=== PATIENT | female | born 1945 | race Caucasian/White ===

== ENCOUNTER 2017-12-06 19:30 | Outpatient (CLI) | payer MEDICARE | END 2017-12-06 19:31 | disposition home or self-care (01) | LOC: SLEEPLAB 19:30 | PROVIDERS: ATTEND Internal Medicine Critical Care Medicine | DX: G47.33 Obstructive sleep apnea (adult) (pediatric) (principal); I48.91 Unspecified atrial fibrillation; G47.52 REM sleep behavior disorder | CPT/HCPCS: 95811 ==

== ENCOUNTER 2018-03-22 15:14 | Outpatient (CLI) | payer MEDICARE ==
--- NOTE | 2018-03-22 15:54 | RAD ---
PA AND LATERAL CHEST: Indication: History of dyspnea. Comparison: 04-07-17 FINDINGS: COPD change is stable. Post CABG change is similar. Dual-lead pacemaker is unchanged. No new airspace opacity, pleural effusion, or pneumothorax is evident. Multilevel compression fractures of the thora columbar spine is similar appearing. Diffuse osteopenia is similar. Surgical clips are seen within th e upper abdomen, similar to the comparison exam. IMPRESSION: 1. No acute cardiopulmonary abnormality. 2. Chronic lung changes. 3. Stable thoracolumbar compression abnormality. POS: [facility]
== END 2018-03-22 15:15 | disposition home or self-care (01) ==
LOC: RAD 15:14
PROVIDERS: ATTEND Internal Medicine Critical Care Medicine
DX: R06.00 Dyspnea, unspecified (principal)
CPT/HCPCS: 71046

== ENCOUNTER 2018-08-12 08:46 | Outpatient (CLI) | payer MEDICARE ==
--- NOTE | 2018-08-12 11:57 | CT ---
CTA OF THE NECK WITH IV CONTRAST AND 3D REFORMATTED IMAGING: INDICATION: History of TIA with double vision. COMPARISON: None. FINDINGS: There is emphysema involving the lung apices with prominent bullae involving the superior segments of the lower lobes. There are other scattered areas of centrilobular and paraseptal emphysema. There enlargement of the pulmonary arterial tree likely related to a secondary pulmonary arterial hypertens ion. There are vascular calcifications involving the thoracic aorta. The right common carotid artery is patent. There is mild atherosclerotic irregularity involving the right carotid bulb. The right internal carotid artery is patent. The visualized petrous and precave rnous ICA are patent. There is a small focal out pouching involving the lateral aspect of the right cavernous internal carotid artery measuring 2.5 x 2.8 mm suspicious for a small aneurysm of the right ICA cavernous segment on image 197 of series 2 [address] series. The supraclinoid IC A is patent. The right MCA and right DIANA is patent. The left common carotid artery is tortuous. The left ICA demonstrates some mild vascular calcificati on along its proximal segment. The remaining cervical course is patent. The left petrous, left prec avernous, left supraclinoid, and left MCA and DIANA arteries are widely patent. Bilateral research engineer marine equipment are patent. The basilar artery is patent. The right vertebral artery is patent. The left vertebral artery is slightly diminutive but patent. Mild calcification near the origin of the left vertebral artery. Subclavian arteries appear patent bilaterally. There is scattered degenerative and osteoarthritic change. There is prominent opacification within t he maxillary sinuses bilaterally. The remaining visualized prevertebral soft tissues appear within n ormal limits. IMPRESSION: 1. No hemodynamically significant stenosis demonstrated. 2. 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 Neurointerventional consultation is recommended with Dr. César Pérez. 3. Complete opacification of maxillary sinus suspicious for prominent paranasal sinus disease. 4. Emphysema of the lung apices with prominence of the pulmonary arterial tree likely related to und erlying secondary pulmonary artery hypertension. CODE T POS: [facility]
[2018-08-12] MEDS ORDERED: Iopamidol 370 76% 100 ML VIAL ONE (13:56)
== END 2018-08-12 08:47 | disposition home or self-care (01) ==
LOC: CT 08:46
PROVIDERS: ATTEND Internal Medicine
DX: G45.9 Transient cerebral ischemic attack, unspecified (principal); I67.1 Cerebral aneurysm, nonruptured; J43.9 Emphysema, unspecified; J34.89 Other specified disorders of nose and nasal sinuses
CPT/HCPCS: 70498; 82565

== ENCOUNTER 2018-09-02 14:15 | Outpatient (CLI) | payer MEDICARE ==
--- NOTE | 2018-09-02 16:55 | BD ---
Exam: DEXA Bone Density 09/02/18 COMPARISON: None. HISTORY: Postmenopausal female undergoing screening for osteoporosis. Lumbar Spine: BMD (g/cm2) L1 0.885 T-Score: -1.0 L2 0.857 T-Score: -1.6 L3 1.021 T-Score: -0.6 L4 1.130 T-Score: 0.6 L1-L4 0.952 T-Score: -0.9 Femoral Neck: 0.533 T-Score: -2.8 Total Proximal Femur: 0.691 T-Score: -2.1 FRAX-WHO fracture risk assessment tool is not reported as some T-Scores are at or below -2.5. Impression: Osteoporosis of the femoral neck, correlating with a high associated risk for fracture. POS: [facility]
--- NOTE | 2018-09-02 17:03 | RAD ---
TWO VIEWS THORACIC SPINE: History: Collapsed vertebra. Pain. Comparison: 06-04-17 FINDINGS: Re-demonstration of multiple stable compression fractures. There is associated vertebral planta and k yphosis. There is diffuse bone demineralization. No new thoracic spine vertebral body fractures are a ppreciated. IMPRESSION: Stable multilevel compression fractures POS: [facility]
== END 2018-09-02 14:16 | disposition home or self-care (01) ==
LOC: BICMAMMO 14:15
PROVIDERS: ATTEND Internal Medicine Rheumatology
DX: M48.54XS Collapsed vertebra, not elsewhere classified, thoracic region, sequela of fracture (principal); M81.0 Age-related osteoporosis without current pathological fracture; M54.6 Pain in thoracic spine
CPT/HCPCS: 72070; 77080

== ENCOUNTER 2018-11-25 14:17 | Outpatient (CLI) | payer MEDICARE ==
--- NOTE | 2018-11-25 15:38 | RAD ---
PA AND LATERAL CHEST: Comparison: 03-22-18 History: Dyspnea arteritis. FINDINGS: Heart size is upper limits of normal. The pacemaker is present. There are post op sternotomy changes seen. There are chronic appearing lung changes present. No acute process demonstrated. IMPRESSION: Borderline heart size with chronic lung change. POS: [facility]
== END 2018-11-25 14:18 | disposition home or self-care (01) ==
LOC: BICRAD 14:17
PROVIDERS: ATTEND Internal Medicine Rheumatology
DX: I77.6 Arteritis, unspecified (principal)
CPT/HCPCS: 71046

== ENCOUNTER 2019-02-16 08:29 | Day surgery (SDC) | payer MEDICARE ==
--- NOTE | 2019-02-14 15:26 | HP ---
ADDENDUM: To previous dictation 09/30/2018. Yanci Slaughter is a 73-year-old female with a midline incision from abdominal aortic aneurysm repair. She is on Xarelto for atrial fibrillation. She is followed by Dr. Anthony Benitez. She is followed by Dr. Minh Parnell for chronic bronchitis and has chronic cough. She is on low-dose steroids for vasculitis. The patient has an incisional hernia in her upper midline incision, suprapubic midline incision, right inguinal hernia. Plan is for robotic mesh repair of these hernias as an outpatient. I have personally discussed with Dr. Anthony Benitez, who states that she is safe to proceed with above-mentioned surgery under general anesthesia without further cardiac evaluation. The patient will hold her Xarelto for 3 midnights prior to the surgery. She will resume it 2 midnights after the surgery. She understands the risks and benefits of the repair and consents. The patient is followed by Dr. Conn for chronic cough and has been recently evaluated. MEDICATIONS: 1. Carvedilol 6.25 mg a day. 2. Atorvastatin 40 mg a day. 3. Levothyroxine 100 mcg a day. 4. Digoxin 125 mcg a day. 5. Aspirin 81 mg a day. 6. Ibandronate sodium 150 mg p.o. daily. 7. Centrum Silver daily. 8. Ezetimibe 10 mg a day. 9. CoQ10 daily. 10. Xarelto 20 mg at bedtime. 11. Vitamin D3. 12. Prednisone 4 mg a day. 13. Duloxetine 30 mg a day. 14. Mucinex daily. 15. Tylenol p.r.n. PAST SURGICAL HISTORY: Colonoscopy in the past. Left heart catheterization in 2012. Pacemaker in October 2007. Coronary artery bypass in 2007. Abdominal aortic aneurysm repair and hernia repair on 12/02/2016. REVIEW OF SYSTEMS: Chronic anticoagulation. SOCIAL HISTORY: Tobacco, none. Alcohol, none. ALLERGIES: PENICILLIN. PHYSICAL EXAMINATION: VITAL SIGNS: Weight 133 pounds, 64 inches, 67 heart rate, blood pressure 119/71, temperature 99 degrees. HEAD, EYES, EARS, NOSE, AND THROAT: Unremarkable. LUNGS: Clear to auscultation. No wheezing. No rhonchi. CARDIAC: Rate and rhythm, irregularly irregular, controlled rate. ABDOMEN: Soft, flat, nondistended. Smaller defect, upper midline incision between the xiphoid and umbilicus. Another defect, lower midline incision and right inguinal hernia repair on standing. EXTREMITIES: Unremarkable. ASSESSMENT AND PLAN: 1. Chronic anticoagulation. Hold Xarelto 3 midnights prior to the surgery. 2. Chronic atrial fibrillation. 3. Discussed with Dr. Anthony Benitez and the patient is safe to proceed for below mentioned surgery without further cardiac evaluation. 4. Incisional hernias, multiple as described. Plan robotic mesh repair. Risks and benefits discussed. She consents. 5. 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 6. Allergies to penicillin. Job ID: [id number]
[2019-02-15 14:50] VITALS: BMI 25.9
[2019-02-16] MEDS ORDERED: Ketorolac Tromethamine 30 MG/ML VIAL ONE (09:06)
[2019-02-16] MEDS ORDERED: Levofloxacin 500 mg/D5W 100 ml Premix Bag ONE (09:06)
[2019-02-16] MEDS ORDERED: Fentanyl 100 MCG/2 ML VIAL ONE ×2 (09:25→16:50)
[2019-02-16] MEDS ORDERED: Midazolam HCl 2 mg/2 ml Vial ONE (09:25)
[2019-02-16 09:27] LABS: #Basophils 0.1 thou/uL (0.0-0.2); #Eosinphils 0.1 thou/uL (0.0-0.7); #Lymphocytes 1.6 thou/uL (1.20-3.40); #Monocytes 0.8 thou/uL (0.11-0.59); #Neutrophils 6.5 thou/uL (1.40-6.50); %Basophils 0.6 % (0.0-1.0); %Eosinophils 1.4 % (0.0-10.0); %Lymphocytes 17.3 % (21.0-51.0); %Monocytes 8.8 % (0.0-10.0); %Neutrophils 71.9 % (42.0-75.0); Hemoglobin 13.4 g/dL (12.0-16.0); Mean Corpuscular Hemoglobin 32.4 pg (27.0-31.0); Mean Corpuscular Volume 95.4 fL (78.0-98.0); Mean Platelet Volume 7.1 fL (7.4-10.4); Platelet Count 229 thou/uL (130-400); RBC Distribution Width 13.5 % (11.5-14.5); Red Blood Cell (RBC) Count 4.14 mill/uL (4.20-5.40)
[2019-02-16 09:45] LABS: Anion Gap 15 mmol/L (10-20); BUN (Urea Nitrogen) 17 mg/dL (9.8-20.1); Calc. Creatinine Clearance 48 mL/min (70-130); Calcium 10.2 mg/dL (7.8-10.44); Carbon Dioxide 26 mmol/L (23-31); Chloride 104 mmol/L (98-107); Estimated GFR-MDRD 56; Glucose 95 mg/dL (83-110); Potassium 3.7 mmol/L (3.5-5.1); Sodium 141 mmol/L (136-145)
[2019-02-16] MEDS ORDERED: Fentanyl 250 MCG/5 ML VIAL ONE (11:36)
[2019-02-16] MEDS ORDERED: Bupivacaine HCl 0.5%/Epinephrine 1:200,000/PF 30 ml Vial ONE (14:43)
[2019-02-16] MEDS ORDERED: Dexamethasone 20 MG/5 ML VIAL ONE (14:46)
[2019-02-16] MEDS ORDERED: Lidocaine 2% PF 5 ML VIAL ONE (14:46)
[2019-02-16] MEDS ORDERED: Rocuronium Bromide 10 MG/ML (10ML VIAL) ONE ×2 (14:46)
[2019-02-16] MEDS ORDERED: Glycopyrrolate 0.2 MG/ML 5 ML SYRINGE ONE (14:46)
[2019-02-16] MEDS ORDERED: Ondansetron PF 4 MG/2 ML Vial ONE (14:46)
[2019-02-16] MEDS ORDERED: PROPOFOL 200 MG/20 ML VIAL ONE (14:46)
[2019-02-16] MEDS ORDERED: SUGAMMADEX SODIUM 200 MG/2 ML VIAL ONE (16:04)
[2019-02-16] MEDS ORDERED: Promethazine HCl 25 MG/ML VIAL IM/IV PRN (17:34)
[2019-02-16] MEDS ORDERED: Ondansetron HCl/PF 4 MG/2 ML Vial IVP PRN (17:34)
--- NOTE | 2019-02-17 00:40 | OP ---
DATE OF PROCEDURE: 02/16/2019 DIAGNOSES: Right inguinal hernia, suprapubic incisional hernia, subxiphoid incisional hernia. PROCEDURES PERFORMED: Laparoscopic adhesiolysis; robot mesh repair, right inguinal hernia; robot mesh repair, suprapubic incisional hernia, 4.6 cm mesh; reinforcement of fascial closure; robot incisional hernia at the upper midline abdomen, 6 cm x 8 cm mesh repair using robots. ANESTHESIA: General, TAP block. ESTIMATED BLOOD LOSS: Less than 100 mL. DESCRIPTION OF PROCEDURE: The patient was taken to the operating room, where under general anesthesia and TAP block, Cavazos catheter placed at the beginning of the procedure and removed at the end. Abdomen was prepared with ChloraPrep and draped in routine fashion. Incision made left subcostally and pneumoperitoneum to 15 mmHg obtained with a Veress needle, replaced with a 5 port, laparoscope inserted. There were minimal adhesions in the upper abdomen. Robot ports were then placed under laparoscopic visualization, placing in the left lateral supraumbilical level abdomen incision and 5 port placed and right lateral 8 mm port placed, and infraumbilical incision was made and 11 port balloon port placed. The robot was docked and robot incisional hernia repair undertaken. Peritoneal flaps taken down from the right pelvis, from the anterosuperior iliac spine to the midline, dissecting this down, dissecting the hernia sac from the hernia defect where she had a right inguinal hernia. This peritoneum was taken down and skeletonized the retroperitoneal structures. A medium size mesh right side was then placed, laparoscopically oriented, placed across the pelvic floor covering the hernia defect well. It was sutured in place with a 2-0 Vicryl to the Esequiel ligament and to the anterior abdominal wall just to the patient's right of the inferior epigastric vessels. Once this was properly placed, the peritoneum was closed with continuous suture of #2-0 V-Loc. Attention was then turned to the suprapubic incision. The peritoneum taken down. Rectus muscles were identified in the midline and there was a hernia defect suprapubic. Using 0 V-Loc suture, this fascia was approximated in the midline with to-and-fro sutures running. A 4.6 cm circular mesh was then placed reinforcing this closure, placing the mesh and held in place with continuous suture of 2-0 V-Loc. Peritoneal defect closed with continuous suture of #2-0 Vicryl. Attention was then turned to the upper abdomen, where the robot was re-docked and repositioned. Initially, we started to use the 11 mm port paraumbilical, but had to place this lower for exposure reasons and to the right lower quadrant paramedian incision, another 11 port placed, and the robot was re-docked to accomplish this. The falciform ligament and omental adhesions were taken down using the hot cautery in the robot. The fascial defect measured approximately 3.5 cm. Peritoneum taken down. Fascia closed transversely with continuous to-and-fro sutures of 0 V-Loc. Once this was completed, the 6 x 8 cm mesh was trimmed, Ventralight, and placed against the abdominal wall. It was held in place with the previously used needle and mesh, secured with continuous suture of #2-0 V-Loc after reducing the pneumoperitoneum to 10 mmHg. Once this was accomplished, all needles were removed. Sponge, needle, and instrument counts were correct. All instruments removed and all skin incisions were approximated with subdermal 4-0 Monocryl and [place] glue applied. Job ID: [id number]
--- NOTE | 2019-02-19 13:30 | EKG ---
Test Reason : PREOP Blood Pressure : / mmHG Vent. Rate : 066 BPM Atrial Rate : 063 BPM P-R Int : 000 ms QRS Dur : 152 ms QT Int : 440 ms P-R-T Axes : 000 -76 096 degrees QTc Int : 461 ms Electronic ventricular pacemaker Confirmed by DR. Jensen TROY ([id number]) on 02/19/2019 1:29:48 PM Referred By: ALVAREZ Confirmed By:DR. Jensen TROY
== END 2019-02-16 21:19 | disposition home or self-care (01) ==
LOC: SDC 08:29
PROVIDERS: ATTEND Specialist
PROC: 0YU54JZ Supplement Right Inguinal Region with Synthetic Substitute, Percutaneous Endoscopic Approach (ICD-10-PCS; principal; 2019-02-16)
PROC: 0WUF4JZ Supplement Abdominal Wall with Synthetic Substitute, Percutaneous Endoscopic Approach (ICD-10-PCS; 2019-02-16)
DX: K40.90 Unilateral inguinal hernia, without obstruction or gangrene, not specified as recurrent (principal); K43.2 Incisional hernia without obstruction or gangrene; I10 Essential (primary) hypertension; J45.909 Unspecified asthma, uncomplicated; E03.9 Hypothyroidism, unspecified; E78.00 Pure hypercholesterolemia, unspecified; E78.5 Hyperlipidemia, unspecified; F41.9 Anxiety disorder, unspecified; M81.0 Age-related osteoporosis without current pathological fracture; Z88.0 Allergy status to penicillin; Z79.82 Long term (current) use of aspirin; Z79.899 Other long term (current) drug therapy; Z95.1 Presence of aortocoronary bypass graft; Z95.0 Presence of cardiac pacemaker
CPT/HCPCS: 80048; 85025; 93005; 93010; C1781; J0131; J0670; J1100; J1885; J1956; J2001; J2250; J2405; J2704; J3010

== ENCOUNTER 2019-04-12 09:57 | Outpatient (CLI) | payer MEDICARE ==
--- NOTE | 2019-04-12 11:10 | CT ---
CT ANGIOGRAM HEAD: CT ANGIOGRAM NECK: 04/12/2019 HISTORY: Prior history of TIA. Re-evaluate aneurysm noted on prior examination. COMPARISON: 08/12/2018 TECHNIQUE: Axial CT imaging is obtained at 5 mm intervals from the vertex through the skull base without contras t. Subsequently, axial CT imaging obtained at 1.25 mm intervals from lung apices through vertex with IV contrast using CT angiogram protocol. Coronal and sagittal 3D reformatted imaging obtained. FINDINGS: The noncontrast enhanced head CT demonstrates no intracranial hemorrhage, midline shift, or mass effe ct. There is stable complete opacification of the bilateral maxillary sinuses. The imaged lung apices demonstrate scattered increased linear interstitial density, as well as subple ural and centrilobular emphysematous change, right greater than left. There are midline sternotomy wires and mediastinal clips. There is atherosclerotic calcification of the aortic arch. Timing of the contrast bolus and volume of administrated contrast media leads to suboptimal opacifica tion of the arterial structures. robotics technologist notes do state that the patient's IV leaked during injection, and the patient was only administered 70 cc of contrast media secondary to abnormal GFR. The origin of the innominate artery, left common carotid artery, and left subclavian artery is patent . There is prominent tortuosity involving the proximal left common carotid artery and proximal left subclavian artery. There is atherosclerotic calcification at the origin of the right subclavian artery, not well assessed secondary to streak artifact from venous contrast media. The origin of the right common carotid artery appears grossly unremarkable. There is atherosclerotic calcification involving the distal left CCA and proximal left ICA. On the b asis of NASCET criteria, there is no hemodynamically significant stenosis involving the carotid system on the left. There is atherosclerotic calcification involving the distal right CCA, best seen on axial image 66, w ith probable moderate stenosis, difficult to accurately measure secondary to suboptimal opacification and atherosclerotic calcification. There is probable moderate stenosis, in the 50% range, at the origin of the right internal carotid ar radha, on the basis of calcified atherosclerotic plaque. Bilateral internal carotid arteries are patent. Vertebral arteries appear grossly unremarkable but are not optimally assessed on this exam. The basilar artery and its branches appear patent. No evidence for saccular aneurysm or vascular occ lusion is seen involving the posterior circulation. The prior examination demonstrated a possible tiny aneurysm involving the cavernous segment of the ri ght internal carotid artery. This is vaguely visualized on this examination and probably measures in the 3 mm range, suggesting no significant interval change. There is atherosclerotic calcification of the cavernous carotid arteries bilaterally. The M1 segment and MCA bifurcation appears grossly unremarkable. The A1 segment appears patent bilat erally. The distal DIANA branches appear grossly unremarkable. The retroantral fat and parapharyngeal fat appears clear bilaterally. The parotid glands and the subm andibular glands demonstrate no acute findings. No lymphadenopathy noted in the chest. No discrete aerodigestive tract lesion. There is moderate degenerative change at the atlantoaxial interspace. There is a superior endplate f racture at the T2, T3, and T5 levels, as seen on the 08/12/2018 examination. IMPRESSION: Grossly unchanged CT examination of the head and neck, using a CT angiogram protocol. This study is t echnically limited as detailed above. Transcribed Date/Time: 04/12/2019 12:11 PM
[2019-04-12] MEDS ORDERED: Iopamidol 370 76% 100 ML VIAL ONE (13:53)
== END 2019-04-12 09:58 | disposition home or self-care (01) ==
LOC: TBSIIMAG 09:57
PROVIDERS: ATTEND Neurological Surgery
DX: I72.9 Aneurysm of unspecified site (principal)
CPT/HCPCS: 70496; 70498; 82565; Q9967

== ENCOUNTER 2019-07-16 20:08 | Emergency (ER) | payer MEDICARE ==
[~2019-07-16 20:08] MED LIST: ISOVUE-370 76%-LOCM 1 ML ONE
--- NOTE | 2019-07-16 22:50 | RAD ---
EXAM: Chest 2 views: HISTORY: Right chest pain COMPARISON: 11/25/2018 FINDINGS: There is an enlarged but stable cardiomediastinal silhouette. The patient is status post CABG. The p acemaker is unchanged in position. Increased interstitial lung markings are stable. There is no evidence of consolidation, mass, or pleural effusion. The bones are unremarkable. IMPRESSION: No evidence of acute cardiopulmonary disease
[2019-07-16 23:07] LABS: #Basophils 0.1 thou/uL (0.0-0.2); #Eosinphils 0.3 thou/uL (0.0-0.7); #Lymphocytes 2.2 thou/uL (1.20-3.40); #Monocytes 0.6 thou/uL (0.11-0.59); #Neutrophils 4.2 thou/uL (1.40-6.50); %Basophils 0.9 % (0.0-1.0); %Eosinophils 3.4 % (0.0-10.0); %Lymphocytes 29.9 % (21.0-51.0); %Monocytes 8.6 % (0.0-10.0); %Neutrophils 57.2 % (42.0-75.0); Hemoglobin 13.8 g/dL (12.0-16.0); Mean Corpuscular HGB CONC 34.7 g/dL (32.0-36.0); Mean Corpuscular Hemoglobin 32.7 pg (27.0-31.0); Mean Corpuscular Volume 94.2 fL (78.0-98.0); Platelet Count 215 thou/uL (130-400); RBC Distribution Width 12.7 % (11.5-14.5); Red Blood Cell (RBC) Count 4.22 mill/uL (4.20-5.40); White Blood Cell (WBC) Count 7.4 thou/uL (4.8-10.8)
[2019-07-16 23:30] LABS: Albumin 4.6 g/dL (3.4-4.8)
[2019-07-16 23:31] LABS: Calcium 9.9 mg/dL (7.8-10.44); Chloride 106 mmol/L (98-107); Potassium 4.5 mmol/L (3.5-5.1); Sodium 139 mmol/L (136-145)
[2019-07-16 23:32] LABS: Globulin 2.7 g/dL (2.4-3.5); Glucose 100 mg/dL (83-110); Protein, Total 7.3 g/dL (6.0-8.3)
[2019-07-16 23:33] LABS: Carbon Dioxide 23 mmol/L (23-31)
[2019-07-16 23:34] LABS: Bilirubin, Total 0.9 mg/dL (0.2-1.2)
[2019-07-16 23:35] LABS: Alkaline Phosphatase 91 U/L (40-110); Calc. Creatinine Clearance 0 mL/min (70-130); Estimated GFR-MDRD 60
[2019-07-16 23:36] LABS: BUN (Urea Nitrogen) 15 mg/dL (9.8-20.1)
[2019-07-16 23:37] LABS: AST (SGOT) 15 U/L (5-34)
[2019-07-16 23:38] LABS: ALT (SGPT) 8 U/L (8-55)
[2019-07-16 23:51] LABS: Anion Gap 14 mmol/L (10-20)
--- NOTE | 2019-07-17 09:57 | CT ---
PRELIMINARY REPORT/[facility]/EMERGENCY AFTER HOURS PROCEDURE: PROCEDURE INFORMATION: Exam: CT Angiography Chest With Contrast Exam date and time: 07/17/2019 1:07 AM Clinical history: 73 years old, female; Patient HX: Er 23; F73 reports to ED C/O right-sided chest pa in, x2 days. PT reports associated SUN. Pmhx afib, pe, pacemaker. Elevated d-dimer TECHNIQUE: Imaging protocol: Computed tomographic angiography of the chest with intravenous contrast. 3D renderi ng: MIP reconstructed images were created and reviewed. COMPARISON: No relevant prior studies available. FINDINGS: Tubes, catheters and devices: Left approach dual lead pacemaker with leads in the right atrium and ri ght ventricle. Pulmonary arteries: No pulmonary emboli. Aorta: Atherosclerotic changes and ectasia of the thoracic aorta. Lungs: Centrilobular and paraseptal emphysema with a larger bulous changes in the superior segments o f the bilateral lower lobes. Mild septal thickening. No pulmonary consolidations. Pleural space: No pneumothorax or pleural effusion. Heart: Mild cardiac enlargement. Surgical changes of coronary artery bypass. The right coronary arter y bypass graft measures up to 1 cm in diameter and contains a distal stent. Scattered coronary artery calcifications. Liver: Liver cysts. Gallbladder and bile ducts: Partially visualized tiny layering gallstones. Lymph nodes: Enlarged aortic pulmonary window lymph node versus dilated and tortuous vessel. Bones/joints: Median sternotomy wires. Mild cortical irregularity to the right anterior fifth rib, li zoe from an old fracture. Multiple thoracic spine compression fractures including T5, 8, 9, 10, 11, 12 and L1. Soft tissues: No acute finding. IMPRESSION: 1. No evidence of a pulmonary embolism. 2. Emphysematous changes without consolidation. Thank you for allowing us to participate in the care of your patient. Dictated and Authenticated by: Starr Kamara MD 07/17/2019 1:49 AM Central Time ([place] & [place]) FINAL REPORT CTA CHEST WITH CONTRAST: Multiplanar reconstruction and 3d post processing performed. FINDINGS: No evidence of pulmonary embolus. Chronic lung parenchymal changes. I am in agreement with the preliminary report.
== END 2019-07-17 02:12 | disposition home or self-care (01) ==
LOC: ERS 20:08
DX: R07.89 Other chest pain (principal); E03.9 Hypothyroidism, unspecified; E78.5 Hyperlipidemia, unspecified; F41.9 Anxiety disorder, unspecified; F32.9 Major depressive disorder, single episode, unspecified; I10 Essential (primary) hypertension; J43.9 Emphysema, unspecified; I25.2 Old myocardial infarction; Z87.891 Personal history of nicotine dependence; Z79.899 Other long term (current) drug therapy
CPT/HCPCS: 36415; 71046; 71275; 80053; 84484; 85025; 85379; 93005

== ENCOUNTER 2019-10-13 13:44 | Outpatient (CLI) | payer MEDICARE ==
--- NOTE | 2019-10-13 14:33 | RAD ---
EXAM: Chest 2 views: HISTORY: Dyspnea COMPARISON: 07/16/2019 FINDINGS: There is an enlarged but stable cardiomediastinal silhouette. The patient is status post CABG. The p acemaker is unchanged in position. There is no evidence of consolidation, mass, or pleural effusion. The bones are unremarkable. IMPRESSION: No evidence of acute cardiopulmonary disease
--- NOTE | 2019-10-13 14:36 | RAD ---
EXAM: 3 views of the thoracic spine HISTORY: Thoracic spine pain COMPARISON: 09/02/2018 FINDINGS: 3 views of the thoracic spine shows stable persistent wedging of multiple thoracic vertebra l bodies, unchanged. Moderate osteophytes are seen throughout the thoracic spine. IMPRESSION: Degenerative changes with multiple stable compression fractures
--- NOTE | 2019-10-13 15:37 | BD ---
Exam: DEXA Bone Density 10/13/19 HISTORY: Age-related osteoporosis, MA1.0. COMPARISON: None. FINDINGS: Lumbar Spine: BMD (g/cm2) T-SCORE Z-SCORE L1 1.071 0.7 2.9 L2 0.911 -1.9 1.4 L3 1.112 0.3 2.8 L4 1.174 1.0 3.7 L1-L4 1.052 0.0 2.5 Right Femoral Neck: 0.628 -1.9 0.2 Total Right Femur: 0.774 -1.4 0.5 WHO classification: Osteopenia: Ten year fracture risk: Major osteoporotic fracture: 20% Hip fracture: 4.5%. Impression: Osteopenia with fracture risk as above. POS: [facility]
== END 2019-10-13 13:45 | disposition home or self-care (01) ==
LOC: BICRAD 13:44
PROVIDERS: ATTEND Internal Medicine Rheumatology
DX: M81.0 Age-related osteoporosis without current pathological fracture (principal); I28.8 Other diseases of pulmonary vessels; M47.814 Spondylosis without myelopathy or radiculopathy, thoracic region; M48.54XA Collapsed vertebra, not elsewhere classified, thoracic region, initial encounter for fracture; M85.80 Other specified disorders of bone density and structure, unspecified site
CPT/HCPCS: 71046; 72070; 77080

== ENCOUNTER 2020-04-06 05:08 | Outpatient (CLI) | payer MEDICARE, OTHER ==
[2020-04-06 13:56] LABS: #Basophils 0.1 thou/uL (0.0-0.2); #Eosinphils 0.3 thou/uL (0.0-0.7); #Lymphocytes 1.7 thou/uL (1.20-3.40); #Monocytes 0.7 thou/uL (0.11-0.59); #Neutrophils 2.8 thou/uL (1.40-6.50); %Basophils 1.2 % (0.0-1.0); %Eosinophils 4.6 % (0.0-10.0); %Lymphocytes 31.2 % (21.0-51.0); %Monocytes 11.9 % (0.0-10.0); %Neutrophils 51.1 % (42.0-75.0); Hemoglobin 9.6 g/dL (12.0-16.0); Mean Corpuscular HGB CONC 33.8 g/dL (32.0-36.0); Mean Corpuscular Hemoglobin 27.5 pg (27.0-31.0); Mean Corpuscular Volume 81.4 fL (78.0-98.0); Mean Platelet Volume 7.7 fL (7.4-10.4); Platelet Count 271 thou/uL (130-400); RBC Distribution Width 14.7 % (11.5-14.5); Red Blood Cell (RBC) Count 3.49 mill/uL (4.20-5.40); White Blood Cell (WBC) Count 5.6 thou/uL (4.8-10.8)
[2020-04-06 14:08] LABS: ALT (SGPT) 9 U/L (8-55); AST (SGOT) 16 U/L (5-34); Albumin 4.1 g/dL (3.4-4.8); Alkaline Phosphatase 80 U/L (40-110); Anion Gap 13 mmol/L (10-20); BUN (Urea Nitrogen) 17 mg/dL (9.8-20.1); Bilirubin, Total 0.7 mg/dL (0.2-1.2); Calc. Creatinine Clearance 0 mL/min (70-130); Calcium 9.2 mg/dL (7.8-10.44); Carbon Dioxide 24 mmol/L (23-31); Chloride 106 mmol/L (98-107); Estimated GFR-MDRD 56; Globulin 2.7 g/dL (2.4-3.5); Glucose 97 mg/dL (83-110); Potassium 3.7 mmol/L (3.5-5.1); Protein, Total 6.8 g/dL (6.0-8.3); Sodium 139 mmol/L (136-145)
[2020-04-07 12:33] LABS: SARS-CoV-2 MS2 Positive; SARS-CoV-2 N Gene Negative; SARS-CoV-2 S Gene Negative; SARS-CoV-2 orf1ab Negative
== END 2020-04-06 05:09 | disposition home or self-care (01) ==
LOC: LABBT 05:08
PROVIDERS: ATTEND Internal Medicine Cardiovascular Disease
DX: Z01.812 Encounter for preprocedural laboratory examination (principal); Z11.59 Encounter for screening for other viral diseases
CPT/HCPCS: 80053; 85025; U0003; 87635

== ENCOUNTER → 2020-04-10 | Day surgery (SDC) | payer MEDICARE ==
[2020-04-05 14:19] VITALS: BMI 25.2
[~2020-04-10] MED LIST changes: +Diazepam 5 MG TAB ONE; +Fentanyl 100 MCG/2 ML VIAL ONE; +Heparin 10,000 UNITS/1 ML VIAL ONE; -ISOVUE-370 76%-LOCM 1 ML ONE; +Iopamidol 370 76% 100 ML VIAL ONE; +Midazolam HCl 2 mg/2 ml Vial ONE
== END ==
LOC: CCL 06:25
PROVIDERS: ATTEND Internal Medicine Cardiovascular Disease
PROC: 4A023N7 Measurement of Cardiac Sampling and Pressure, Left Heart, Percutaneous Approach (ICD-10-PCS; principal; 2020-04-10)
PROC: B2111ZZ Fluoroscopy of Multiple Coronary Arteries using Low Osmolar Contrast (ICD-10-PCS; 2020-04-10)
PROC: B2181ZZ Fluoroscopy of Left Internal Mammary Bypass Graft using Low Osmolar Contrast (ICD-10-PCS; 2020-04-10)
PROC: B2131ZZ Fluoroscopy of Multiple Coronary Artery Bypass Grafts using Low Osmolar Contrast (ICD-10-PCS; 2020-04-10)
DX: I25.709 Atherosclerosis of coronary artery bypass graft(s), unspecified, with unspecified angina pectoris (principal); I25.119 Atherosclerotic heart disease of native coronary artery with unspecified angina pectoris; I25.82 Chronic total occlusion of coronary artery; I11.0 Hypertensive heart disease with heart failure; E78.2 Mixed hyperlipidemia; I50.9 Heart failure, unspecified; I48.0 Paroxysmal atrial fibrillation; E78.00 Pure hypercholesterolemia, unspecified; Z79.01 Long term (current) use of anticoagulants; Z79.82 Long term (current) use of aspirin; Z79.899 Other long term (current) drug therapy; Z88.0 Allergy status to penicillin; Z95.1 Presence of aortocoronary bypass graft
CPT/HCPCS: 76942; 93459; 99152; 99153; J1644; J2250; J3010; Q9967

== ENCOUNTER 2020-05-24 12:50 | Outpatient (CLI) | payer MEDICARE ==
--- NOTE | 2020-05-24 14:04 | CT ---
CT thoracic spine noncontrast: 05/24/2020 HISTORY: 74-year-old female with mid back pain. "Compression fracture T5 vertebra." COMPARISON: CT pulmonary angiogram images of 07/17/2019. FINDINGS: Multiple old compression fractures, including: T5 vertebral body with maximum of approximately 75% loss of height, minimal bony retropulsion of supe rior endplate. T8 with maximum of 75% or greater loss of height centrally. Minimal bony retropulsion. T9: Broad, shallow to moderate indentation of inferior endplate. Maximum loss of height approximately 30%. T10: Biconcave broad indentations of superior and inferior endplates, maximum loss of height approxim ately 50%. T11: Broad-based depression of superior endplate. Maximum anterior loss of height approximate 75%. L1: Severe loss of height with almost vertebra plana configuration. Mild bony retropulsion. Diffuse osteopenia. All of these old compression and burst fractures result in exaggerated kyphosis. Large posterior pleural-based bilateral lower lobe bullae, centered at superior segments of bilateral lower lobes, encroaching upon basilar segments. Numerous much smaller posterior pleural-based basilar segment lower lobe bullae. No significant interval change overall. IMPRESSION: 1.) Numerous old osteoporotic compression fractures and burst fractures of mid and lower thoracic spi ne, causing exaggerated kyphosis. 2) severe paraseptal emphysema 3) no interval change since 07/17/2019.
--- NOTE | 2020-05-24 14:11 | CT ---
Exam: CT lumbar spine without contrast HISTORY: Compression fracture of the lumbar spine. COMPARISON: None FINDINGS: Visualized solid organs, alimentary canal and paraspinal muscles do not demonstrate any acute abnorma lity Atherosclerosis of a nonaneurysmal aorta, Diffuse bone demineralization. Visualized sacrum and bony pelvis appear to be intact. Vacuum joint phenomenon in bilateral sacroilia c joints 5 lumbar type vertebra. Vertebral plana at L1. Sclerosis along the superior endplate of L3 without de finite paraspinal hematoma. Remote mild superior endplate compression fracture is suspected. There is sclerosis along the superior endplate of L4 and superior plate of L5 compatible with remote mild t o moderate compression fractures. No significant retropulsion. There is multilevel facet arthropathy. Limited evaluation the contents of the central spinal canal and neural foramina due to technique T12-L1: Vacuum disc phenomenon. No posterior disc abnormality. Moderate bilateral neural foraminal na rrowing L1 vertebral body: Moderate central canal stenosis secondary to retropulsion L1-L2: No evidence of high-grade central canal stenosis. Moderate to severe bilateral neural foramina l narrowing L2-L3: No evidence of high-grade central canal stenosis. Mild bilateral neural foraminal narrowing L3-L4: Broad-based disc bulge, ligament flavum thickening and facet hypertrophy results in mild to mo derate central canal stenosis. Mild to moderate bilateral neural foraminal narrowing L4-L5: Broad-based disc bulge, ligament flavum thickening and facet result in moderate central canal stenosis. Mild to moderate bilateral neural foraminal narrowing L5-S1: Broad-based disc bulge, ligamentum flavum thickening and facet hypertrophy. Moderate to severe central canal stenosis. Partial obscuration of bilateral traversing S1 nerve roots. Moderate to severe bilateral neural foraminal narrowing. IMPRESSION: 1. Diffuse bony mineralization 2. L1 vertebral plana with retropulsion. Moderate central canal stenosis 2. Remote mild superior end plate irregularity due to remote injury at the L3 level. Mild remote comp ression fractures at L4 and L5. 4. Varying degrees of central canal stenosis and neural foraminal narrowing as detailed above. Transcribed Date/Time: 05/24/2020 2:31 PM
== END 2020-05-24 12:51 | disposition home or self-care (01) ==
LOC: BICCT 12:50
PROVIDERS: ATTEND Neurological Surgery
DX: S22.050A Wedge compression fracture of T5-T6 vertebra, initial encounter for closed fracture (principal); S32.000A Wedge compression fracture of unspecified lumbar vertebra, initial encounter for closed fracture; M48.061 Spinal stenosis, lumbar region without neurogenic claudication; Z98.890 Other specified postprocedural states; J43.9 Emphysema, unspecified
CPT/HCPCS: 72128; 72131

== ENCOUNTER 2020-12-03 12:42 | Outpatient (CLI) | payer MEDICARE | END 2020-12-03 12:43 | disposition home or self-care (01) | LOC: BICMAMMO 12:42 | PROVIDERS: ATTEND Internal Medicine Rheumatology | DX: M81.0 Age-related osteoporosis without current pathological fracture (principal); M85.852 Other specified disorders of bone density and structure, left thigh | CPT/HCPCS: 77080 ==

== ENCOUNTER 2021-07-25 12:27 | Outpatient (CLI) | payer MEDICARE ==
[~2021-07-25 12:27] MED LIST changes: -Diazepam 5 MG TAB ONE; -Fentanyl 100 MCG/2 ML VIAL ONE; -Heparin 10,000 UNITS/1 ML VIAL ONE; -Iopamidol 370 76% 100 ML VIAL ONE; +Iopamidol-370 76% 500 ML 1 ML ONE; -Midazolam HCl 2 mg/2 ml Vial ONE
== END 2021-07-25 12:28 | disposition home or self-care (01) ==
LOC: BICCT 12:27
PROVIDERS: ATTEND Neurological Surgery
DX: I67.1 Cerebral aneurysm, nonruptured (principal); M81.0 Age-related osteoporosis without current pathological fracture
CPT/HCPCS: 36415; 70496; 82310; Q9967

== ENCOUNTER 2022-01-21 00:19 | Emergency (ER) | payer MEDICARE ==
[2022-01-21] MEDS ORDERED: GASTROGRAFIN 30 ML BOT ONE (10:16)
== END 2022-01-21 02:03 | disposition home or self-care (01) ==
LOC: ERS 00:19
DX: K94.23 Gastrostomy malfunction (principal); I11.0 Hypertensive heart disease with heart failure; I50.9 Heart failure, unspecified; I25.2 Old myocardial infarction; E03.9 Hypothyroidism, unspecified; E78.5 Hyperlipidemia, unspecified; J43.9 Emphysema, unspecified; Z86.73 Personal history of transient ischemic attack (TIA), and cerebral infarction without residual deficits; Z87.891 Personal history of nicotine dependence
CPT/HCPCS: 74018

== ENCOUNTER 2022-01-21 02:31 | Emergency (ER) | payer MEDICARE ==
[2022-01-21 03:49] LABS: #Basophils 0.1 thou/uL (0.0-0.2); #Eosinphils 0.1 thou/uL (0.0-0.7); #Lymphocytes 2.2 thou/uL (1.20-3.40); #Monocytes 0.9 thou/uL (0.11-0.59); #Neutrophils 7.9 thou/uL (1.40-6.50); %Basophils 0.7 % (0.0-1.0); %Eosinophils 1.2 % (0.0-10.0); %Lymphocytes 19.2 % (21.0-51.0); %Monocytes 8.4 % (0.0-10.0); %Neutrophils 70.6 % (42.0-75.0); Mean Corpuscular Hemoglobin 33.3 pg (27.0-31.0); Mean Corpuscular Volume 95.2 fL (78.0-98.0); Mean Platelet Volume 6.9 fL (7.4-10.4); Platelet Count 309 thou/uL (130-400); RBC Distribution Width 14.5 % (11.5-14.5); White Blood Cell (WBC) Count 11.2 thou/uL (4.8-10.8)
[2022-01-21 04:09] LABS: ALT (SGPT) 8 U/L (8-55); AST (SGOT) 15 U/L (5-34); Albumin 3.9 g/dL (3.4-4.8); Alkaline Phosphatase 90 U/L (40-110); Anion Gap 17 mmol/L (10-20); BUN (Urea Nitrogen) 22 mg/dL (9.8-20.1); Bilirubin, Total 0.8 mg/dL (0.2-1.2); Calc. Creatinine Clearance 0 mL/min (70-130); Calcium 9.5 mg/dL (7.8-10.44); Carbon Dioxide 24 mmol/L (23-31); Chloride 101 mmol/L (98-107); Globulin 3.8 g/dL (2.4-3.5); Glucose 108 mg/dL (83-110); Potassium 4.3 mmol/L (3.5-5.1); Protein, Total 7.7 g/dL (5.8-8.1); Sodium 138 mmol/L (136-145)
[2022-01-21 04:29] LABS: Bilirubin Negative (Negative); Blood, Urine Negative (Negative); Clarity Clear (Clear); Glucose, Urine (Dipstick) Normal (Negative); Ketone, Urine Negative (Negative); Leukocyte Negative Leu/uL (Negative); Nitrite Negative (Negative); Protein, Urine (Dipstick) 10 mg/dL (Neg-Trace); Urobilinogen 3 mg/dL (Less than 2); pH, Urine 6.5 (5.0-9.0)
[2022-01-21] MEDS ORDERED: Iopamidol-370 76% 500 ML 1 ML ONE (09:42)
== END 2022-01-21 06:52 | disposition home or self-care (01) ==
LOC: ERS 02:31
DX: R11.2 Nausea with vomiting, unspecified (principal); I11.0 Hypertensive heart disease with heart failure; I50.9 Heart failure, unspecified; I25.2 Old myocardial infarction; E03.9 Hypothyroidism, unspecified; E78.5 Hyperlipidemia, unspecified; J43.9 Emphysema, unspecified; Z86.73 Personal history of transient ischemic attack (TIA), and cerebral infarction without residual deficits; Z87.891 Personal history of nicotine dependence
CPT/HCPCS: 36415; 74018; 74177; 80053; 81003; 84484; 85025; 93005; Q9967

== ENCOUNTER 2022-01-30 09:42 | Inpatient (IN) | payer MEDICARE ==
[2022-01-30 11:20] LABS: Bacteria/HPF None Seen HPF (None Seen); Bilirubin Negative (Negative); Blood, Urine Negative (Negative); Clarity Clear (Clear); Glucose, Urine (Dipstick) Normal (Negative); Ketone, Urine Negative (Negative); Leukocyte 25 Leu/uL (Negative); Nitrite Negative (Negative); Protein, Urine (Dipstick) 50 mg/dL (Neg-Trace); RBC/HPF 0-3 HPF (0-3); Specific Gravity, Urine 1.023 (1.002-1.036); Squamous Epithelial 0-3 HPF (0-3); Urobilinogen Normal mg/dL (Less than 2); WBC/HPF 0-3 HPF (0-3)
[2022-01-30] MEDS ORDERED: Ondansetron PF 4 MG/2 ML Vial ONE (11:35)
[2022-01-30 11:49] LABS: #Eosinphils 0.1 thou/uL (0.0-0.7); #Lymphocytes 2.1 thou/uL (1.20-3.40); #Monocytes 0.7 thou/uL (0.11-0.59); #Neutrophils 7.8 thou/uL (1.40-6.50); %Basophils 0.3 % (0.0-1.0); %Eosinophils 0.8 % (0.0-10.0); %Monocytes 6.5 % (0.0-10.0); %Neutrophils 72.5 % (42.0-75.0); Hemoglobin 12.5 g/dL (12.0-16.0); Mean Corpuscular HGB CONC 33.5 g/dL (32.0-36.0); Mean Corpuscular Hemoglobin 33.1 pg (27.0-31.0); Mean Corpuscular Volume 98.8 fL (78.0-98.0); Mean Platelet Volume 6.3 fL (7.4-10.4); Platelet Count 299 thou/uL (130-400); RBC Distribution Width 15.2 % (11.5-14.5); Red Blood Cell (RBC) Count 3.79 mill/uL (4.20-5.40); White Blood Cell (WBC) Count 10.7 thou/uL (4.8-10.8)
[2022-01-30 12:12] LABS: Digoxin 0.57 ng/mL (0.8-2.0)
[2022-01-30 12:14] LABS: ALT (SGPT) 7 U/L (8-55); AST (SGOT) 15 U/L (5-34); Alkaline Phosphatase 91 U/L (40-110); Anion Gap 15 mmol/L (10-20); BUN (Urea Nitrogen) 18 mg/dL (9.8-20.1); Bilirubin, Total 0.9 mg/dL (0.2-1.2); Calc. Creatinine Clearance 0 mL/min (70-130); Calcium 10.1 mg/dL (7.8-10.44); Carbon Dioxide 24 mmol/L (23-31); Chloride 102 mmol/L (98-107); Globulin 4.4 g/dL (2.4-3.5); Glucose 105 mg/dL (83-110); Lipase 286 U/L (8-78); Potassium 3.8 mmol/L (3.5-5.1); Protein, Total 8.4 g/dL (5.8-8.1); Sodium 137 mmol/L (136-145)
[2022-01-30] MEDS ORDERED: Acetaminophen 650 MG Suppository PR PRN (16:07)
[2022-01-30] MEDS ORDERED: Ondansetron ODT 4 MG TAB PO PRN (16:07)
[2022-01-30] MEDS ORDERED: Calcium Carbonate 500 MG ChewTAB PO PRN (16:07)
[2022-01-30] MEDS ORDERED: Acetaminophen 325 MG TAB PO PRN (16:07)
[2022-01-30] MEDS ORDERED: Ondansetron PF 4 MG/2 ML Vial IVP PRN (16:07)
[2022-01-30] MEDS ORDERED: Communication Order-Pharmacy FS ONE (16:09)
[2022-01-30 16:24] LABS: Magnesium 2.1 mg/dL (1.6-2.6); Phosphorus 3.5 mg/dL (2.3-4.7)
[2022-01-30] MEDS: Carvedilol 6.25 MG TAB PO SCH (17:10)
[2022-01-30] MEDS ORDERED: Enoxaparin Sodium 60 MG/0.6 ML SYRINGE SC SCH (17:15)
[2022-01-30] MEDS: D5 1/2 NS w/20 mEq KCL 1,000 ML IV SCH ×2 (17:36→23:27)
[2022-01-30] MEDS: Pantoprazole 40 MG VIAL IVP SCH (21:09)
[2022-01-31 05:36] LABS: #Eosinphils 0.2 thou/uL (0.0-0.7); #Lymphocytes 1.9 thou/uL (1.20-3.40); #Monocytes 0.8 thou/uL (0.11-0.59); #Neutrophils 6.8 thou/uL (1.40-6.50); %Basophils 0.5 % (0.0-1.0); %Eosinophils 2.3 % (0.0-10.0); %Lymphocytes 19.1 % (21.0-51.0); %Monocytes 8.6 % (0.0-10.0); %Neutrophils 69.5 % (42.0-75.0); Hemoglobin 10.1 g/dL (12.0-16.0); Mean Corpuscular HGB CONC 33.1 g/dL (32.0-36.0); Mean Corpuscular Hemoglobin 32.8 pg (27.0-31.0); Mean Corpuscular Volume 99.3 fL (78.0-98.0); Mean Platelet Volume 6.5 fL (7.4-10.4); Platelet Count 253 thou/uL (130-400); RBC Distribution Width 15.3 % (11.5-14.5); Red Blood Cell (RBC) Count 3.09 mill/uL (4.20-5.40); White Blood Cell (WBC) Count 9.8 thou/uL (4.8-10.8)
[2022-01-31 05:52] LABS: ALT (SGPT) Less than 7 U/L (8-55); AST (SGOT) 10 U/L (5-34); Albumin 3.1 g/dL (3.4-4.8); Alkaline Phosphatase 73 U/L (40-110); Anion Gap 11 mmol/L (10-20); BUN (Urea Nitrogen) 13 mg/dL (9.8-20.1); Bilirubin, Total 0.6 mg/dL (0.2-1.2); Calc. Creatinine Clearance 47 mL/min (70-130); Calcium 8.5 mg/dL (7.8-10.44); Carbon Dioxide 25 mmol/L (23-31); Chloride 106 mmol/L (98-107); Globulin 3.5 g/dL (2.4-3.5); Glucose 134 mg/dL (83-110); Lipase 242 U/L (8-78); Potassium 4.3 mmol/L (3.5-5.1); Protein, Total 6.6 g/dL (5.8-8.1); Sodium 138 mmol/L (136-145)
[2022-01-31] MEDS: Levothyroxine Sodium 100 MCG TAB PO SCH (06:14)
[2022-01-31] MEDS: D5 1/2 NS w/20 mEq KCL 1,000 ML IV SCH ×3 (06:19→16:00)
[2022-01-31] MEDS ORDERED: DULoxetine 60 MG CAP PO SCH (09:00)
[2022-01-31] MEDS ORDERED: Enoxaparin Sodium 60 MG/0.6 ML SYRINGE SC SCH (09:00)
[2022-01-31] MEDS: Pantoprazole 40 MG VIAL IVP SCH ×2 (10:13→21:06)
[2022-01-31] MEDS: Carvedilol 6.25 MG TAB PO SCH ×2 (10:25→17:30)
[2022-01-31] MEDS: Digoxin 0.125 MG TAB PO SCH (10:26)
[2022-01-31] MEDS: DULoxetine 60 MG CAP PO SCH (10:27)
[2022-01-31 19:03] LABS: SARS-CoV-2 PCR by NAA Not Detected (NotDetected)
[2022-01-31] MEDS ORDERED: RIVAROXABAN PO SCH (21:00)
[2022-01-31] MEDS ORDERED: Atorvastatin Calcium 20 MG TAB PO SCH (21:00)
[2022-01-31] MEDS: Atorvastatin Calcium 40 MG TAB PO SCH (21:06)
[2022-01-31] MEDS: Rivaroxaban 10 MG TAB PO SCH (21:07)
[2022-02-01] MEDS: D5 1/2 NS w/20 mEq KCL 1,000 ML IV SCH ×2 (05:44→18:28)
[2022-02-01] MEDS: Levothyroxine Sodium 100 MCG TAB PO SCH (05:44)
[2022-02-01] MEDS: DULoxetine 60 MG CAP PO SCH (08:43)
[2022-02-01] MEDS: Pantoprazole 40 MG VIAL IVP SCH (08:43)
[2022-02-01] MEDS: Citalopram 20 MG TAB PO SCH (08:43)
[2022-02-01] MEDS: Digoxin 0.125 MG TAB PO SCH (08:43)
[2022-02-01] MEDS: Carvedilol 6.25 MG TAB PO SCH ×2 (08:43→16:32)
[2022-02-01 12:56] VITALS: BMI 20.5
[2022-02-01] MEDS: metroNIDAZOLE 500 MG in Premix Bag 1 BAG IVPB SCH ×2 (18:23→23:08)
[2022-02-01] MEDS: cefTRIAXone\\ROCEPHIN 1 GM in Sodium Chloride 0.9% 100 ML IVPB SCH (20:30)
[2022-02-01] MEDS: Rivaroxaban 10 MG TAB PO SCH (20:30)
[2022-02-01] MEDS: Atorvastatin Calcium 40 MG TAB PO SCH (20:30)
[2022-02-02] MEDS: metroNIDAZOLE 500 MG in Premix Bag 1 BAG IVPB SCH ×4 (05:03→23:26)
[2022-02-02] MEDS: Levothyroxine Sodium 100 MCG TAB PO SCH (05:06)
[2022-02-02 06:14] LABS: Platelet Count 230 thou/uL (130-400)
[2022-02-02 06:35] LABS: ALT (SGPT) Less than 7 U/L (8-55); AST (SGOT) 10 U/L (5-34); Albumin 2.8 g/dL (3.4-4.8); Alkaline Phosphatase 63 U/L (40-110); Anion Gap 11 mmol/L (10-20); BUN (Urea Nitrogen) 9 mg/dL (9.8-20.1); Bilirubin, Total 0.8 mg/dL (0.2-1.2); Calc. Creatinine Clearance 51 mL/min (70-130); Carbon Dioxide 22 mmol/L (23-31); Chloride 105 mmol/L (98-107); Globulin 3.2 g/dL (2.4-3.5); Glucose 86 mg/dL (83-110); Potassium 3.7 mmol/L (3.5-5.1); Sodium 134 mmol/L (136-145)
[2022-02-02] MEDS: Digoxin 0.125 MG TAB PO SCH (08:22)
[2022-02-02] MEDS: DULoxetine 60 MG CAP PO SCH (08:22)
[2022-02-02] MEDS: Citalopram 20 MG TAB PO SCH (08:22)
[2022-02-02] MEDS: cefTRIAXone\\ROCEPHIN 1 GM in Sodium Chloride 0.9% 100 ML IVPB SCH (17:37)
[2022-02-02] MEDS: Atorvastatin Calcium 40 MG TAB PO SCH (19:33)
[2022-02-02] MEDS: Rivaroxaban 10 MG TAB PO SCH (19:33)
[2022-02-03] MEDS: metroNIDAZOLE 500 MG in Premix Bag 1 BAG IVPB SCH (05:38)
[2022-02-03] MEDS: Levothyroxine Sodium 100 MCG TAB PO SCH (05:38)
[2022-02-03] MEDS: Digoxin 0.125 MG TAB PO SCH (07:54)
[2022-02-03] MEDS: DULoxetine 60 MG CAP PO SCH (07:54)
[2022-02-03] MEDS: Citalopram 20 MG TAB PO SCH (07:54)
[2022-02-03 08:13] VITALS: BP 114/75; TEMP 98.1
== END 2022-02-03 17:06 | disposition home or self-care (01) | DRG 393 ==
LOC: EDUNIT# 09:42 → ERS 09:42 → T4-A 15:18 → OBSVTOIN 01-31 13:15
PROVIDERS: ADMIT Internal Medicine; ATTEND Internal Medicine
DX: K94.23 Gastrostomy malfunction (principal); K85.10 Biliary acute pancreatitis without necrosis or infection; I13.0 Hypertensive heart and chronic kidney disease with heart failure and stage 1 through stage 4 chronic kidney disease, or unspecified chronic kidney disease; I48.0 Paroxysmal atrial fibrillation; N18.30 Chronic kidney disease, stage 3 unspecified; E86.0 Dehydration; E03.9 Hypothyroidism, unspecified; Y83.8 Other surgical procedures as the cause of abnormal reaction of the patient, or of later complication, without mention of misadventure at the time of the procedure; F41.9 Anxiety disorder, unspecified; F32.A Depression, unspecified; I50.9 Heart failure, unspecified; Z88.0 Allergy status to penicillin; Z79.890 Hormone replacement therapy; Z79.51 Long term (current) use of inhaled steroids; Z79.899 Other long term (current) drug therapy; I25.2 Old myocardial infarction; I69.320 Aphasia following cerebral infarction
CPT/HCPCS: 36415; 74018; 74176; 74230; 76705; 80053; 80162; 81003; 81015; 82150; 83690; 83735; 84100; 84484; 85014; 85018; 85025; 85049; 87086; 93005; 96361; 96374; 96375; C9113; G0378; J1650; J2405; J3480; Q0162; U0003; U0005

== ENCOUNTER 2022-02-08 20:19 | Inpatient (IN) | payer MEDICARE ==
[2022-02-08] MEDS ORDERED: Ondansetron PF 4 MG/2 ML Vial ONE (21:22)
[2022-02-08 22:00] LABS: #Basophils 0.1 thou/uL (0.0-0.2); #Eosinphils 0.2 thou/uL (0.0-0.7); #Lymphocytes 2.6 thou/uL (1.20-3.40); #Monocytes 1.1 thou/uL (0.11-0.59); #Neutrophils 8.5 thou/uL (1.40-6.50); %Basophils 0.5 % (0.0-1.0); %Eosinophils 1.4 % (0.0-10.0); %Lymphocytes 20.7 % (21.0-51.0); %Monocytes 8.6 % (0.0-10.0); %Neutrophils 68.8 % (42.0-75.0); Mean Corpuscular HGB CONC 33.5 g/dL (32.0-36.0); Mean Corpuscular Hemoglobin 32.9 pg (27.0-31.0); Mean Platelet Volume 6.5 fL (7.4-10.4); Platelet Count 290 thou/uL (130-400); RBC Distribution Width 14.7 % (11.5-14.5); Red Blood Cell (RBC) Count 3.35 mill/uL (4.20-5.40); White Blood Cell (WBC) Count 12.3 thou/uL (4.8-10.8)
[2022-02-08 22:23] LABS: ALT (SGPT) Less than 7 U/L (8-55); AST (SGOT) 12 U/L (5-34); Albumin 3.4 g/dL (3.4-4.8); Alkaline Phosphatase 83 U/L (40-110); Anion Gap 14 mmol/L (10-20); BUN (Urea Nitrogen) 16 mg/dL (9.8-20.1); Bilirubin, Total 0.7 mg/dL (0.2-1.2); Calc. Creatinine Clearance 0 mL/min (70-130); Calcium 8.9 mg/dL (7.8-10.44); Carbon Dioxide 28 mmol/L (23-31); Chloride 96 mmol/L (98-107); Globulin 3.7 g/dL (2.4-3.5); Glucose 102 mg/dL (83-110); Lipase 122 U/L (8-78); Potassium 3.7 mmol/L (3.5-5.1); Protein, Total 7.1 g/dL (5.8-8.1); Sodium 134 mmol/L (136-145)
[2022-02-08] MEDS ORDERED: Vancomycin 1 GM/200 ML BAG ONE (22:55)
[2022-02-08] MEDS ORDERED: Cefepime 2 GM VIAL ONE (22:55)
[2022-02-08] MEDS ORDERED: metroNIDAZOLE 500 MG/100 ML BAG ONE (22:56)
[2022-02-08 23:35] LABS: Bilirubin Negative (Negative); Blood, Urine Negative (Negative); Clarity Clear (Clear); Glucose, Urine (Dipstick) Normal (Negative); Ketone, Urine Negative (Negative); Leukocyte Negative Leu/uL (Negative); Nitrite Negative (Negative); Protein, Urine (Dipstick) Negative (Neg-Trace); Specific Gravity, Urine 1.034 (1.002-1.036); Urobilinogen Normal mg/dL (Less than 2); pH, Urine 7.5 (5.0-9.0)
[2022-02-09] MEDS ORDERED: Ondansetron PF 4 MG/2 ML Vial IVP PRN (00:15)
[2022-02-09] MEDS ORDERED: Ondansetron ODT 4 MG TAB SL PRN (00:15)
[2022-02-09] MEDS ORDERED: Acetaminophen 650 MG Suppository PR PRN (00:35)
[2022-02-09] MEDS ORDERED: Pantoprazole 40 MG VIAL IVP SCH (00:45)
[2022-02-09 00:50] VITALS: BMI 22.6
[2022-02-09] MEDS: Sodium Chloride 0.9% 1,000 ML IV SCH ×4 (01:00→21:42)
[2022-02-09 04:16] LABS: SARS-CoV-2 NAA Rapid Test Not Detected (NotDetected)
[2022-02-09] MEDS: metroNIDAZOLE 500 MG in Premix Bag 1 BAG IVPB SCH ×3 (05:36→21:41)
[2022-02-09 06:50] LABS: #Eosinphils 0.2 thou/uL (0.0-0.7); #Lymphocytes 1.9 thou/uL (1.20-3.40); #Monocytes 0.9 thou/uL (0.11-0.59); #Neutrophils 7.6 thou/uL (1.40-6.50); %Basophils 0.4 % (0.0-1.0); %Eosinophils 1.6 % (0.0-10.0); %Lymphocytes 18.2 % (21.0-51.0); %Monocytes 8.3 % (0.0-10.0); %Neutrophils 71.5 % (42.0-75.0); Hemoglobin 10.3 g/dL (12.0-16.0); Mean Corpuscular HGB CONC 33.2 g/dL (32.0-36.0); Mean Corpuscular Hemoglobin 33.2 pg (27.0-31.0); Mean Corpuscular Volume 99.9 fL (78.0-98.0); Mean Platelet Volume 7.2 fL (7.4-10.4); Platelet Count 249 thou/uL (130-400); RBC Distribution Width 14.7 % (11.5-14.5); Red Blood Cell (RBC) Count 3.12 mill/uL (4.20-5.40); White Blood Cell (WBC) Count 10.6 thou/uL (4.8-10.8)
[2022-02-09 07:17] LABS: Anion Gap 14 mmol/L (10-20); BUN (Urea Nitrogen) 11 mg/dL (9.8-20.1); Calc. Creatinine Clearance 53 mL/min (70-130); Calcium 8.2 mg/dL (7.8-10.44); Carbon Dioxide 22 mmol/L (23-31); Chloride 102 mmol/L (98-107); Glucose 92 mg/dL (83-110); Potassium 3.6 mmol/L (3.5-5.1); Sodium 134 mmol/L (136-145)
[2022-02-09] MEDS: Pantoprazole 40 MG VIAL IVP SCH (08:22)
[2022-02-09] MEDS ORDERED: GASTROGRAFIN 30 ML BOT ONE (09:28)
[2022-02-09] MEDS: Metoclopramide 10 MG/10 ML UDCUP PO SCH ×2 (17:16→21:48)
[2022-02-09] MEDS: Heparin 5,000 UNITS/ML VIAL SC SCH (21:42)
[2022-02-09] MEDS ORDERED: Metoclopramide HCl 10 MG/2 ML VIAL IVP SCH (22:00)
[2022-02-09] MEDS: Vancomycin 1 GM in Premix Bag 1 BAG IVPB SCH (23:52)
[2022-02-10] MEDS: metroNIDAZOLE 500 MG in Premix Bag 1 BAG IVPB SCH (06:26)
[2022-02-10 07:59] LABS: #Eosinphils 0.2 thou/uL (0.0-0.7); #Lymphocytes 1.9 thou/uL (1.20-3.40); #Monocytes 0.6 thou/uL (0.11-0.59); #Neutrophils 3.6 thou/uL (1.40-6.50); %Basophils 0.8 % (0.0-1.0); %Eosinophils 2.7 % (0.0-10.0); %Lymphocytes 30.4 % (21.0-51.0); %Monocytes 9.4 % (0.0-10.0); %Neutrophils 56.7 % (42.0-75.0); Hemoglobin 9.8 g/dL (12.0-16.0); Mean Corpuscular HGB CONC 32.8 g/dL (32.0-36.0); Mean Corpuscular Hemoglobin 33.3 pg (27.0-31.0); Mean Platelet Volume 6.3 fL (7.4-10.4); Platelet Count 202 thou/uL (130-400); RBC Distribution Width 14.6 % (11.5-14.5); Red Blood Cell (RBC) Count 2.95 mill/uL (4.20-5.40); White Blood Cell (WBC) Count 6.4 thou/uL (4.8-10.8)
[2022-02-10 08:00] LABS: #Basophils 0.1 thou/uL (0.0-0.2)
[2022-02-10 08:31] LABS: Anion Gap 13 mmol/L (10-20); BUN (Urea Nitrogen) 7 mg/dL (9.8-20.1); Calc. Creatinine Clearance 64 mL/min (70-130); Carbon Dioxide 16 mmol/L (23-31); Chloride 109 mmol/L (98-107); Glucose 53 mg/dL (83-110); Magnesium 1.4 mg/dL (1.6-2.6); Potassium 2.7 mmol/L (3.5-5.1); Sodium 135 mmol/L (136-145)
[2022-02-10] MEDS: Heparin 5,000 UNITS/ML VIAL SC SCH ×2 (08:46→21:29)
[2022-02-10] MEDS: Pantoprazole 40 MG VIAL IVP SCH (09:00)
[2022-02-10] MEDS ORDERED: Potassium Chloride 20 MEQ/100 ML PREMIX BAG IVPB SCH (09:00)
[2022-02-10] MEDS: Metoclopramide 10 MG/10 ML UDCUP PO SCH ×4 (09:00→21:29)
[2022-02-10] MEDS: Sodium Chloride 0.9% 1,000 ML IV SCH ×2 (09:00→15:01)
[2022-02-10] MEDS ORDERED: Magnesium 2 GM/50 ML(in water) 2 GM in Premix Bag 1 BAG IVPB SCH (09:30)
[2022-02-10] MEDS: Potassium Chloride 20 MEQ/100 ML PREMIX BAG IVPB SCH ×2 (11:15→14:30)
[2022-02-10] MEDS ORDERED: Levofloxacin 500 mg/D5W 100 ml Premix Bag ONE (11:30)
[2022-02-10] MEDS ORDERED: fentaNYL Citrate/PF 100 MCG/2 ML SYRINGE ONE (11:43)
[2022-02-10] MEDS ORDERED: SUGAMMADEX SODIUM 200 MG/2 ML VIAL ONE (11:44)
[2022-02-10] MEDS ORDERED: Famotidine/PF 20 mg/2ml Vial ONE (11:44)
[2022-02-10] MEDS ORDERED: Lidocaine 1% w/Epinephrine 1:100K 20 ML VIAL ONE (11:46)
[2022-02-10] MEDS ORDERED: Bupivacaine 0.25% 10 ML VIAL ONE (11:46)
[2022-02-10] MEDS ORDERED: Rocuronium Bromide 10 MG/ML (10ML VIAL) ONE (12:00)
[2022-02-10] MEDS ORDERED: ePHEDrine 50 MG/ML VIAL ONE (12:00)
[2022-02-10] MEDS ORDERED: Ondansetron PF 4 MG/2 ML Vial ONE (12:00)
[2022-02-10] MEDS ORDERED: Lidocaine 1% PF 5 ML VIAL ONE (12:00)
[2022-02-10] MEDS ORDERED: Glycopyrrolate 0.2 MG/ML 5 ML SYRINGE ONE (12:00)
[2022-02-10] MEDS ORDERED: PROPOFOL 200 MG/20 ML VIAL ONE (12:00)
[2022-02-10] MEDS ORDERED: Acetaminophen 500 MG TAB PO PRN (13:21)
[2022-02-10] MEDS ORDERED: Ondansetron HCl/PF 4 MG/2 ML Vial IVP PRN (13:30)
[2022-02-10] MEDS ORDERED: Acetaminophen 500 MG TAB PO SCH (13:30)
[2022-02-10] MEDS ORDERED: Promethazine HCl 25 MG/ML VIAL IVPB PRN (13:30)
[2022-02-10] MEDS ORDERED: Promethazine HCl 25 MG/ML VIAL IM PRN (13:30)
[2022-02-10] MEDS: traMADol HCl 50 MG TAB PO PRN (15:01)
[2022-02-10] MEDS ORDERED: Potassium Chloride 20 MEQ TAB PO SCH (17:00)
[2022-02-10 22:56] LABS: Vancomycin, Trough 7.7 ug/mL
[2022-02-11] MEDS: Vancomycin 1 GM in Premix Bag 1 BAG IVPB SCH (00:02)
[2022-02-11] MEDS: Sodium Chloride 0.9% 1,000 ML IV SCH ×4 (00:03→21:33)
[2022-02-11] MEDS: Vancomycin HCl 750 MG in Sodium Chloride 0.9% 250 ML 250 ML IVPB SCH ×3 (00:03→23:44)
[2022-02-11 07:40] LABS: #Eosinphils 0.2 thou/uL (0.0-0.7); #Monocytes 0.3 thou/uL (0.11-0.59); #Neutrophils 5.5 thou/uL (1.40-6.50); %Basophils 0.1 % (0.0-1.0); %Eosinophils 2.6 % (0.0-10.0); %Lymphocytes 13.5 % (21.0-51.0); %Monocytes 4.9 % (0.0-10.0); Hemoglobin 10.2 g/dL (12.0-16.0); Mean Corpuscular HGB CONC 31.4 g/dL (32.0-36.0); Mean Corpuscular Hemoglobin 31.8 pg (27.0-31.0); Mean Platelet Volume 6.8 fL (7.4-10.4); Platelet Count 213 thou/uL (130-400); RBC Distribution Width 14.6 % (11.5-14.5); Red Blood Cell (RBC) Count 3.22 mill/uL (4.20-5.40)
[2022-02-11 08:09] LABS: ALT (SGPT) 18 U/L (8-55); AST (SGOT) 48 U/L (5-34); Albumin 2.6 g/dL (3.4-4.8); Alkaline Phosphatase 69 U/L (40-110); Anion Gap 12 mmol/L (10-20); BUN (Urea Nitrogen) 9 mg/dL (9.8-20.1); Bilirubin, Total 0.8 mg/dL (0.2-1.2); Calc. Creatinine Clearance 51 mL/min (70-130); Calcium 7.9 mg/dL (7.8-10.44); Carbon Dioxide 18 mmol/L (23-31); Chloride 109 mmol/L (98-107); Globulin 3.8 g/dL (2.4-3.5); Glucose 81 mg/dL (83-110); Magnesium 2.3 mg/dL (1.6-2.6); Potassium 3.9 mmol/L (3.5-5.1); Protein, Total 6.4 g/dL (5.8-8.1); Sodium 135 mmol/L (136-145)
[2022-02-11] MEDS: traMADol HCl 50 MG TAB PO PRN ×2 (08:38→21:37)
[2022-02-11] MEDS: Metoclopramide 10 MG/10 ML UDCUP PO SCH ×4 (08:38→21:33)
[2022-02-11] MEDS: Heparin 5,000 UNITS/ML VIAL SC SCH ×2 (08:39→21:47)
[2022-02-11] MEDS ORDERED: Atorvastatin Calcium 40 MG TAB PO SCH (21:00)
[2022-02-12] MEDS: traMADol HCl 50 MG TAB PO PRN (05:21)
[2022-02-12] MEDS ORDERED: Levothyroxine Sodium 100 MCG TAB PO SCH (06:00)
[2022-02-12 07:08] LABS: #Eosinphils 0.3 thou/uL (0.0-0.7); #Lymphocytes 1.3 thou/uL (1.20-3.40); #Monocytes 0.4 thou/uL (0.11-0.59); #Neutrophils 4.1 thou/uL (1.40-6.50); %Basophils 0.5 % (0.0-1.0); %Eosinophils 4.6 % (0.0-10.0); %Monocytes 6.2 % (0.0-10.0); %Neutrophils 66.8 % (42.0-75.0); Hemoglobin 9.1 g/dL (12.0-16.0); Mean Corpuscular HGB CONC 33.2 g/dL (32.0-36.0); Mean Corpuscular Hemoglobin 32.7 pg (27.0-31.0); Mean Corpuscular Volume 98.8 fL (78.0-98.0); Mean Platelet Volume 6.3 fL (7.4-10.4); Platelet Count 204 thou/uL (130-400); RBC Distribution Width 14.5 % (11.5-14.5); Red Blood Cell (RBC) Count 2.79 mill/uL (4.20-5.40); White Blood Cell (WBC) Count 6.1 thou/uL (4.8-10.8)
[2022-02-12 07:26] LABS: Anion Gap 9 mmol/L (10-20); BUN (Urea Nitrogen) 7 mg/dL (9.8-20.1); Calc. Creatinine Clearance 59 mL/min (70-130); Calcium 7.7 mg/dL (7.8-10.44); Carbon Dioxide 21 mmol/L (23-31); Chloride 107 mmol/L (98-107); Glucose 85 mg/dL (83-110); Potassium 3.3 mmol/L (3.5-5.1); Sodium 134 mmol/L (136-145)
[2022-02-12 08:09] VITALS: BP 120/82; TEMP 98.2
[2022-02-12] MEDS: Heparin 5,000 UNITS/ML VIAL SC SCH (08:15)
[2022-02-12] MEDS: Metoclopramide 10 MG/10 ML UDCUP PO SCH ×2 (08:15→11:27)
[2022-02-12] MEDS ORDERED: Citalopram 20 MG TAB PO SCH (09:00)
[2022-02-12] MEDS ORDERED: Digoxin 0.125 MG TAB PO SCH (09:00)
[2022-02-12] MEDS ORDERED: Cyanocobalamin (Vitamin B-12) 1,000 MCG TAB PO SCH (09:00)
[2022-02-12] MEDS ORDERED: DULoxetine 60 MG CAP PO SCH (09:00)
[2022-02-12] MEDS ORDERED: Loratadine 10 MG TAB PO SCH ×2 (09:00)
[2022-02-12] MEDS: Sodium Chloride 0.9% 1,000 ML IV SCH (10:02)
[2022-02-12] MEDS: Vancomycin HCl 750 MG in Sodium Chloride 0.9% 250 ML 250 ML IVPB SCH (11:51)
[2022-02-12] MEDS ORDERED: Vancomycin 1 GM in Premix Bag 1 BAG IVPB SCH (23:59)
== END 2022-02-12 15:06 | DRG 417 ==
LOC: ERS 20:19 → T4-A 23:21
PROVIDERS: ADMIT Internal Medicine; ATTEND Family Medicine
PROC: 0DP6XUZ Removal of Feeding Device from Stomach, External Approach (ICD-10-PCS; 2022-02-09)
PROC: 0FT44ZZ Resection of Gallbladder, Percutaneous Endoscopic Approach (ICD-10-PCS; principal; 2022-02-10)
PROC: 0DJ08ZZ Inspection of Upper Intestinal Tract, Via Natural or Artificial Opening Endoscopic (ICD-10-PCS; 2022-02-10)
DX: K80.10 Calculus of gallbladder with chronic cholecystitis without obstruction (principal); K85.10 Biliary acute pancreatitis without necrosis or infection; K94.23 Gastrostomy malfunction; R78.81 Bacteremia; Z20.822 Contact with and (suspected) exposure to COVID-19; E78.5 Hyperlipidemia, unspecified; J44.9 Chronic obstructive pulmonary disease, unspecified; I50.9 Heart failure, unspecified; I11.0 Hypertensive heart disease with heart failure; R13.10 Dysphagia, unspecified; Y83.3 Surgical operation with formation of external stoma as the cause of abnormal reaction of the patient, or of later complication, without mention of misadventure at the time of the procedure; I25.10 Atherosclerotic heart disease of native coronary artery without angina pectoris; E89.0 Postprocedural hypothyroidism; I48.91 Unspecified atrial fibrillation; K29.70 Gastritis, unspecified, without bleeding; K31.89 Other diseases of stomach and duodenum; K29.80 Duodenitis without bleeding; K52.9 Noninfective gastroenteritis and colitis, unspecified; B95.62 Methicillin resistant Staphylococcus aureus infection as the cause of diseases classified elsewhere; E87.6 Hypokalemia; I25.2 Old myocardial infarction; Z95.5 Presence of coronary angioplasty implant and graft; Z87.891 Personal history of nicotine dependence; I69.320 Aphasia following cerebral infarction; I69.391 Dysphagia following cerebral infarction; Z88.0 Allergy status to penicillin; Z79.899 Other long term (current) drug therapy; Z79.890 Hormone replacement therapy; Z79.01 Long term (current) use of anticoagulants; Z95.1 Presence of aortocoronary bypass graft; Z87.01 Personal history of pneumonia (recurrent)
CPT/HCPCS: 36415; 51701; 71045; 74018; 74177; 80048; 80053; 80202; 81003; 83605; 83690; 83735; 83880; 84443; 84484; 85025; 87040; 87077; 87149; 87186; 88304; 93005; 94640; 96365; 96368; 96375; C1713; C9113; J0692; J1644; J1956; J2405; J2704; J3370; J3480; J3490; J7050; J7620; Q9963; Q9967; S0020; S0028; U0002

== ENCOUNTER 2022-04-03 07:00 | Day surgery (SDC) | payer MEDICARE ==
[2022-04-01 14:33] VITALS: BMI 19.3
[2022-04-02 10:52] LABS: Hemoglobin 12.3 g/dL (12.0-15.5); INR-International Normal Ratio 1.2; Mean Corpuscular Hemoglobin 31.5 pg (27.0-33.0); Mean Corpuscular Volume 92.8 fl (81.6-98.3); Mean Platelet Volume 9.5 fl (7.4-10.4); Platelet Count 235 10x3/uL (150-450); Prothrombin Time 13.4 sec (9.5-12.1); RBC Distribution Width 13.2 % (11.5-14.5); White Blood Cell (WBC) Count 6.8 10x3/uL (3.5-10.5)
[2022-04-02 11:03] LABS: ALT (SGPT) 9 U/L (8-55); AST (SGOT) 19 U/L (5-34); Albumin 3.9 g/dL (3.4-4.8); Alkaline Phosphatase 87 U/L (40-110); Anion Gap 14 mmol/L (10-20); BUN (Urea Nitrogen) 20 mg/dL (9.8-20.1); Bilirubin, Total 0.8 mg/dL (0.2-1.2); Calc. Creatinine Clearance 0 mL/min (70-130); Calcium 9.8 mg/dL (7.8-10.44); Carbon Dioxide 34 mmol/L (23-31); Chloride 95 mmol/L (98-107); Estimated GFR 42; Globulin 3.9 g/dL (2.4-3.5); Glucose 93 mg/dL (83-110); Protein, Total 7.8 g/dL (5.8-8.1); Sodium 140 mmol/L (136-145)
[2022-04-02 11:07] LABS: Potassium 2.9 mmol/L (3.5-5.1)
[2022-04-03] MEDS ORDERED: Heparin 10,000 UNITS/ 10 ML VIAL ONE (08:58)
[2022-04-03] MEDS ORDERED: Protamine Sulfate 50 MG/5 ML VIAL ONE (08:58)
[2022-04-03] MEDS ORDERED: Clindamycin/D5W 900 mg/50 ml Premix Bag ONE (08:58)
[2022-04-03] MEDS ORDERED: SUGAMMADEX SODIUM 200 MG/2 ML VIAL ONE (10:02)
== END 2022-04-03 11:40 | disposition home or self-care (01) ==
LOC: SJX 07:00 → SURG A 07:14 → UNDOADMIN 07:14 → EDSTATUS 09:45 → UNDODISIN 11:20 → SJX 11:40
PROVIDERS: ATTEND Internal Medicine Cardiovascular Disease
PROC: B246ZZ4 Ultrasonography of Right and Left Heart, Transesophageal (ICD-10-PCS; principal; 2022-04-03)
DX: I48.19 Other persistent atrial fibrillation (principal); I08.3 Combined rheumatic disorders of mitral, aortic and tricuspid valves; E87.6 Hypokalemia; I11.0 Hypertensive heart disease with heart failure; I50.32 Chronic diastolic (congestive) heart failure; I25.10 Atherosclerotic heart disease of native coronary artery without angina pectoris; E78.5 Hyperlipidemia, unspecified; Z86.73 Personal history of transient ischemic attack (TIA), and cerebral infarction without residual deficits; Z79.01 Long term (current) use of anticoagulants; Z79.890 Hormone replacement therapy; Z79.899 Other long term (current) drug therapy; Z88.0 Allergy status to penicillin; Z95.0 Presence of cardiac pacemaker; Z95.1 Presence of aortocoronary bypass graft; Z95.5 Presence of coronary angioplasty implant and graft; Z20.822 Contact with and (suspected) exposure to COVID-19
CPT/HCPCS: 36415; 36430; 80053; 84132; 85027; 85610; 86850; 86900; 86901; 87811; 93312; J1644; J2720; J3490

== ENCOUNTER 2022-04-20 14:31 | Emergency (ER) | payer MEDICARE ==
[2022-04-20 15:15] LABS: #Eosinphils 0.3 thou/uL (0.0-0.7); #Lymphocytes 2.2 thou/uL (1.20-3.40); #Monocytes 0.7 thou/uL (0.11-0.59); #Neutrophils 2.3 thou/uL (1.40-6.50); %Basophils 0.7 % (0.0-1.0); %Monocytes 13.1 % (0.0-10.0); %Neutrophils 41.3 % (42.0-75.0); Hemoglobin 11.2 g/dL (12.0-16.0); Mean Corpuscular HGB CONC 33.8 g/dL (32.0-36.0); Mean Corpuscular Hemoglobin 32.2 pg (27.0-31.0); Mean Corpuscular Volume 95.2 fL (78.0-98.0); Platelet Count 215 thou/uL (130-400); RBC Distribution Width 12.9 % (11.5-14.5); Red Blood Cell (RBC) Count 3.48 mill/uL (4.20-5.40); White Blood Cell (WBC) Count 5.5 thou/uL (4.8-10.8)
[2022-04-20 15:35] LABS: ALT (SGPT) 10 U/L (8-55); AST (SGOT) 15 U/L (5-34); Albumin 3.7 g/dL (3.4-4.8); Alkaline Phosphatase 88 U/L (40-110); Anion Gap 15 mmol/L (10-20); BUN (Urea Nitrogen) 18 mg/dL (9.8-20.1); Bilirubin, Total 0.6 mg/dL (0.2-1.2); Calc. Creatinine Clearance 0 mL/min (70-130); Calcium 9.7 mg/dL (7.8-10.44); Carbon Dioxide 26 mmol/L (23-31); Chloride 99 mmol/L (98-107); Estimated GFR 61; Globulin 3.9 g/dL (2.4-3.5); Glucose 85 mg/dL (83-110); Potassium 3.2 mmol/L (3.5-5.1); Protein, Total 7.6 g/dL (5.8-8.1); Sodium 137 mmol/L (136-145)
== END 2022-04-20 16:00 | disposition home or self-care (01) ==
LOC: ERS 14:31
DX: J06.9 Acute upper respiratory infection, unspecified (principal); Z79.899 Other long term (current) drug therapy; E78.5 Hyperlipidemia, unspecified; I50.9 Heart failure, unspecified; I11.0 Hypertensive heart disease with heart failure; J44.9 Chronic obstructive pulmonary disease, unspecified; I25.2 Old myocardial infarction; Z87.891 Personal history of nicotine dependence
CPT/HCPCS: 36415; 71045; 80053; 85025

== ENCOUNTER 2022-05-22 10:22 | Outpatient (CLI) | payer MEDICARE ==
[2022-05-22 12:08] LABS: Hemoglobin 11.7 g/dL (12.0-15.5); Mean Corpuscular HGB CONC 34.1 g/dL (32.0-36.0); Mean Corpuscular Hemoglobin 30.4 pg (27.0-33.0); Mean Corpuscular Volume 89.1 fl (81.6-98.3); Mean Platelet Volume 9.8 fl (7.4-10.4); Platelet Count 213 10x3/uL (150-450); RBC Distribution Width 13.7 % (11.5-14.5); Red Blood Cell (RBC) Count 3.85 10x6/uL (3.90-5.03); White Blood Cell (WBC) Count 6.5 10x3/uL (3.5-10.5)
[2022-05-22 12:19] LABS: INR-International Normal Ratio 1.2; Prothrombin Time 12.8 sec (9.5-12.1)
[2022-05-22 12:27] LABS: ALT (SGPT) 11 U/L (8-55); AST (SGOT) 13 U/L (5-34); Alkaline Phosphatase 74 U/L (40-110); Anion Gap 12 mmol/L (10-20); BUN (Urea Nitrogen) 20 mg/dL (9.8-20.1); Bilirubin, Total 0.8 mg/dL (0.2-1.2); Calc. Creatinine Clearance 0 mL/min (70-130); Calcium 9.7 mg/dL (7.8-10.44); Carbon Dioxide 25 mmol/L (23-31); Chloride 104 mmol/L (98-107); Estimated GFR 69; Globulin 3.4 g/dL (2.4-3.5); Glucose 90 mg/dL (83-110); Protein, Total 7.4 g/dL (5.8-8.1); Sodium 137 mmol/L (136-145)
== END 2022-05-22 10:23 | disposition home or self-care (01) ==
LOC: LABBT 10:22
PROVIDERS: ATTEND Internal Medicine Cardiovascular Disease
DX: Z01.812 Encounter for preprocedural laboratory examination (principal); Z20.822 Contact with and (suspected) exposure to COVID-19
CPT/HCPCS: 80053; 85027; 85610; 86850; 86900; 86901; 87811

== ENCOUNTER 2022-05-22 10:45 | Inpatient (IN) | payer MEDICARE ==
[2022-05-22 12:08] LABS: Hemoglobin 11.7 g/dL (12.0-15.5); Mean Corpuscular HGB CONC 34.1 g/dL (32.0-36.0); Mean Corpuscular Hemoglobin 30.4 pg (27.0-33.0); Mean Corpuscular Volume 89.1 fl (81.6-98.3); Mean Platelet Volume 9.8 fl (7.4-10.4); Platelet Count 213 10x3/uL (150-450); RBC Distribution Width 13.7 % (11.5-14.5); Red Blood Cell (RBC) Count 3.85 10x6/uL (3.90-5.03); White Blood Cell (WBC) Count 6.5 10x3/uL (3.5-10.5)
[2022-05-22 12:19] LABS: INR-International Normal Ratio 1.2; Prothrombin Time 12.8 sec (9.5-12.1)
[2022-05-22 12:27] LABS: ALT (SGPT) 11 U/L (8-55); AST (SGOT) 13 U/L (5-34); Alkaline Phosphatase 74 U/L (40-110); Anion Gap 12 mmol/L (10-20); BUN (Urea Nitrogen) 20 mg/dL (9.8-20.1); Bilirubin, Total 0.8 mg/dL (0.2-1.2); Calc. Creatinine Clearance 0 mL/min (70-130); Calcium 9.7 mg/dL (7.8-10.44); Carbon Dioxide 25 mmol/L (23-31); Chloride 104 mmol/L (98-107); Estimated GFR 69; Globulin 3.4 g/dL (2.4-3.5); Glucose 90 mg/dL (83-110); Protein, Total 7.4 g/dL (5.8-8.1); Sodium 137 mmol/L (136-145)
[2022-05-27] MEDS ORDERED: Heparin 10,000 UNITS/ 10 ML VIAL ONE (06:42)
[2022-05-27] MEDS ORDERED: Protamine Sulfate 50 MG/5 ML VIAL ONE (06:42)
[2022-05-27] MEDS ORDERED: Rocuronium Bromide 10 MG/ML (10ML VIAL) ONE (08:02)
[2022-05-27] MEDS ORDERED: Lidocaine 1% MPF 2 ML VIAL ONE (08:02)
[2022-05-27] MEDS ORDERED: PROPOFOL 200 MG/20 ML VIAL ONE (08:02)
[2022-05-27] MEDS ORDERED: Dexamethasone 20 MG/5 ML VIAL ONE (08:02)
[2022-05-27] MEDS ORDERED: Ketorolac Tromethamine 30 MG/ML VIAL ONE (08:02)
[2022-05-27] MEDS ORDERED: Iopamidol 370 76% 100 ML VIAL ONE (09:17)
[2022-05-27] MEDS ORDERED: Clindamycin/D5W 600 mg/50 ml Premix Bag ONE (09:59)
[2022-05-27] MEDS ORDERED: SUGAMMADEX SODIUM 200 MG/2 ML VIAL ONE (10:12)
[2022-05-27] MEDS ORDERED: HYDROcodone/Acetaminophen 5/325 mg Tablet PO PRN ×2 (10:41)
[2022-05-27] MEDS ORDERED: guaiFENesin ER 600 MG TAB PO PRN (10:48)
[2022-05-27 14:35] VITALS: BMI 17.6
[2022-05-27] MEDS: Carvedilol 3.125 MG TAB PO SCH (16:51)
[2022-05-27] MEDS ORDERED: Rivaroxaban 10 MG TAB PO SCH (17:00)
[2022-05-27] MEDS ORDERED: Atorvastatin Calcium 40 MG TAB PO SCH (21:00)
[2022-05-27] MEDS ORDERED: Donepezil HCl 10 MG TAB PO SCH (21:00)
[2022-05-27] MEDS: Cyanocobalamin (Vitamin B-12) 1,000 MCG TAB PO SCH (21:53)
[2022-05-27] MEDS: Potassium Chloride 20 MEQ TAB PO SCH (21:54)
[2022-05-28] MEDS ORDERED: Levothyroxine Sodium 100 MCG TAB PO SCH (06:00)
[2022-05-28] MEDS ORDERED: Digoxin 0.125 MG TAB PO SCH (09:00)
[2022-05-28] MEDS ORDERED: Cholecalciferol 1,000 UNITS (25 MCG) TAB PO SCH (09:00)
[2022-05-28] MEDS ORDERED: Citalopram 20 MG TAB PO SCH (09:00)
[2022-05-28] MEDS ORDERED: DULoxetine 60 MG CAP PO SCH (09:00)
[2022-05-28] MEDS ORDERED: Ezetimibe 10 MG TAB PO SCH (09:00)
[2022-05-28] MEDS ORDERED: Torsemide 10 MG TAB PO SCH (09:00)
[2022-05-28] MEDS: Carvedilol 3.125 MG TAB PO SCH (10:20)
[2022-05-28] MEDS: Cyanocobalamin (Vitamin B-12) 1,000 MCG TAB PO SCH (10:21)
[2022-05-28] MEDS: Potassium Chloride 20 MEQ TAB PO SCH (10:22)
[2022-05-28 12:11] VITALS: BP 122/61; TEMP 97.9
== END 2022-05-28 14:00 | disposition home or self-care (01) | DRG 251 ==
LOC: SURG A 05-27 06:38 → 2NO 05-27 13:37
PROVIDERS: ADMIT Internal Medicine Cardiovascular Disease; ATTEND Internal Medicine Cardiovascular Disease
PROC: B246ZZZ Ultrasonography of Right and Left Heart (ICD-10-PCS; principal; 2022-05-27)
PROC: 02U Heart and Great Vessels, Supplement (ICD-10-PCS; 2022-05-27)
DX: I48.0 Paroxysmal atrial fibrillation (principal); Z20.822 Contact with and (suspected) exposure to COVID-19
CPT/HCPCS: 33340; 36430; 80053; 85027; 85347; 85610; 86850; 86900; 86901; 87811; 93306; 93312; C1759; C1760; C1769; C1894; J1100; J1644; J1885; J2704; J2720; J3490; Q9967

== ENCOUNTER 2022-07-24 07:37 | Day surgery (SDC) | payer MEDICARE ==
[2022-07-22 11:58] VITALS: BMI 19.7
[2022-07-24 08:40] LABS: #Basophils 0.1 thou/uL (0.0-0.2); #Eosinphils 0.4 thou/uL (0.0-0.7); #Lymphocytes 1.9 thou/uL (1.20-3.40); #Monocytes 0.6 thou/uL (0.11-0.59); #Neutrophils 3.4 thou/uL (1.40-6.50); %Eosinophils 5.7 % (0.0-10.0); %Lymphocytes 30.6 % (21.0-51.0); %Neutrophils 53.8 % (42.0-75.0); Hemoglobin 11.5 g/dL (12.0-16.0); Mean Corpuscular HGB CONC 32.6 g/dL (32.0-36.0); Mean Platelet Volume 7.3 fL (7.4-10.4); Platelet Count 221 thou/uL (130-400); RBC Distribution Width 12.7 % (11.5-14.5); White Blood Cell (WBC) Count 6.3 thou/uL (4.8-10.8)
[2022-07-24 08:56] LABS: INR-International Normal Ratio 1.1; PTT 28.8 sec (22.9-36.1); Prothrombin Time 14.6 sec (12.0-14.7)
[2022-07-24 09:02] LABS: Anion Gap 13 mmol/L (10-20); BUN (Urea Nitrogen) 25 mg/dL (9.8-20.1); Calc. Creatinine Clearance 32 mL/min (70-130); Calcium 9.9 mg/dL (7.8-10.44); Carbon Dioxide 25 mmol/L (23-31); Chloride 103 mmol/L (98-107); Estimated GFR 55; Glucose 93 mg/dL (83-110); Potassium 3.8 mmol/L (3.5-5.1); Sodium 137 mmol/L (136-145)
[2022-07-24] MEDS ORDERED: PROPOFOL 200 MG/20 ML VIAL ONE (10:03)
== END 2022-07-24 11:35 | disposition home or self-care (01) ==
LOC: SDC 07:37
PROVIDERS: ATTEND Internal Medicine Cardiovascular Disease
PROC: B244ZZ4 Ultrasonography of Right Heart, Transesophageal (ICD-10-PCS; principal; 2022-07-24)
DX: I48.91 Unspecified atrial fibrillation (principal); I34.0 Nonrheumatic mitral (valve) insufficiency; Z79.01 Long term (current) use of anticoagulants; Z79.890 Hormone replacement therapy; Z79.899 Other long term (current) drug therapy; Z88.0 Allergy status to penicillin; Z95.0 Presence of cardiac pacemaker; Z95.1 Presence of aortocoronary bypass graft; Z95.818 Presence of other cardiac implants and grafts
CPT/HCPCS: 80048; 85025; 85610; 85730; 93312; J2704

== ENCOUNTER 2022-08-06 08:46 | Outpatient (CLI) | payer MEDICARE | END 2022-08-06 08:47 | disposition home or self-care (01) | LOC: RAD 08:46 | PROVIDERS: ATTEND Internal Medicine Critical Care Medicine | DX: R06.00 Dyspnea, unspecified (principal); J98.4 Other disorders of lung; M40.204 Unspecified kyphosis, thoracic region | CPT/HCPCS: 71046 ==

== ENCOUNTER 2023-01-06 10:10 | Emergency (ER) | payer MEDICARE | END 2023-01-06 13:04 | disposition home or self-care (01) | LOC: ERS 10:10 | DX: I12.0 Hypertensive chronic kidney disease with stage 5 chronic kidney disease or end stage renal disease (principal); I50.9 Heart failure, unspecified; J44.9 Chronic obstructive pulmonary disease, unspecified; E78.5 Hyperlipidemia, unspecified; Z87.891 Personal history of nicotine dependence; Z79.899 Other long term (current) drug therapy ==

== ENCOUNTER 2023-03-17 07:33 | Outpatient (CLI) | payer MEDICARE ==
[2023-03-17] MEDS ORDERED: Iopamidol 370 76% 100 ML VIAL ONE (09:22)
== END 2023-03-17 07:34 | disposition home or self-care (01) ==
LOC: CT 07:33
PROVIDERS: ATTEND Physician Assistant Medical
DX: R93.2 Abnormal findings on diagnostic imaging of liver and biliary tract (principal); L29.9 Pruritus, unspecified; R10.13 Epigastric pain; Z90.49 Acquired absence of other specified parts of digestive tract
CPT/HCPCS: 74170; Q9967

== ENCOUNTER 2023-04-23 14:42 | Inpatient (IN) | payer MEDICARE ==
[2023-04-23] MEDS ORDERED: Morphine 4 MG/ML VIAL ONE (15:15)
[2023-04-23] MEDS ORDERED: Iopamidol-370 76% 500 ML MDV (1 ML CHARGE) ONE (15:19)
[2023-04-23 15:25] LABS: #Eosinphils 0.2 thou/uL (0.0-0.7); #Monocytes 0.6 thou/uL (0.11-0.59); #Neutrophils 4.9 thou/uL (1.40-6.50); %Basophils 0.4 % (0.0-1.0); %Eosinophils 3.1 % (0.0-10.0); %Lymphocytes 18.9 % (21.0-51.0); %Monocytes 8.7 % (0.0-10.0); %Neutrophils 68.5 % (42.0-75.0); Hemoglobin 11.2 g/dL (12.0-16.0); Mean Corpuscular HGB CONC 33.6 g/dL (32.0-36.0); Mean Corpuscular Volume 92.2 fl (78.0-98.0); Mean Platelet Volume 8.9 fL (7.4-10.4); Platelet Count 214 10x3/uL (130-400); Red Blood Cell (RBC) Count 3.61 mill/uL (4.20-5.40); White Blood Cell (WBC) Count 7.1 10x3/uL (4.8-10.8)
[2023-04-23 15:49] LABS: ALT (SGPT) 8 U/L (8-55); AST (SGOT) 11 U/L (5-34); Albumin 3.8 g/dL (3.4-4.8); Alkaline Phosphatase 75 U/L (40-110); Anion Gap 8 mmol/L (10-20); BUN (Urea Nitrogen) 20 mg/dL (9.8-20.1); Bilirubin, Total 0.4 mg/dL (0.2-1.2); Calc. Creatinine Clearance 0 mL/min (70-130); Carbon Dioxide 28 mmol/L (23-31); Chloride 106 mmol/L (98-107); Estimated GFR 49; Globulin 3.2 g/dL (2.4-3.5); Glucose 92 mg/dL (83-110); Potassium 3.4 mmol/L (3.5-5.1); Sodium 139 mmol/L (136-145)
[2023-04-23] MEDS ORDERED: HUMAN PROTHROMBIN COMPLX IV SCH (16:30)
[2023-04-23] MEDS ORDERED: ADMIXTURE FEE IV SCH (16:30)
[2023-04-23 17:08] LABS: INR-International Normal Ratio 1.1; PTT 24.1 sec (22.9-36.1); Prothrombin Time 14.3 sec (12.0-14.7)
[2023-04-23] MEDS ORDERED: Ipratropium/Albuterol 3 ML NEB NEB PRN (17:26)
[2023-04-23] MEDS ORDERED: Glucagon 1 MG/ML KIT IM PRN (17:26)
[2023-04-23] MEDS ORDERED: TETANUS, DIPHTHERIA TOX,ADULT (TDVAX) 0.5 ML VIAL IM ONE (17:26)
[2023-04-23] MEDS ORDERED: Ondansetron PF 4 MG/2 ML Vial IVP PRN (17:26)
[2023-04-23] MEDS ORDERED: Dextrose 5% in Water 1,000 ML IV PRN (17:26)
[2023-04-23] MEDS ORDERED: Dextrose 50% Abboject 50 ML SYRINGE SLOW IVP PRN (17:26)
[2023-04-23] MEDS ORDERED: Acetaminophen 325 MG TAB PO PRN (17:26)
[2023-04-23] MEDS ORDERED: Ondansetron ODT 4 MG TAB PO PRN (17:26)
[2023-04-23] MEDS ORDERED: Sodium Chloride 0.9% 1,000 ML IV SCH (17:30)
[2023-04-23] MEDS ORDERED: hydrALAZINE 20 MG/ML VIAL SLOW IVP PRN (17:31)
[2023-04-23 18:20] LABS: Magnesium 2.1 mg/dL (1.6-2.6)
[2023-04-23] MEDS ORDERED: Boostrix 0.5 ML (Tdap) VIAL (>/=7 yrs of age) ONE (20:37)
[2023-04-23] MEDS ORDERED: Potassium Chloride 20 MEQ/100 ML PREMIX BAG ONE (20:37)
[2023-04-23] MEDS: Potassium Chloride 20 MEQ in Premix Bag 1 BAG IVPB SCH (20:49)
[2023-04-24] MEDS ORDERED: Potassium Chloride 20 MEQ/100 ML PREMIX BAG ONE (00:16)
[2023-04-24] MEDS: Potassium Chloride 20 MEQ in Premix Bag 1 BAG IVPB SCH (00:25)
[2023-04-24 04:55] LABS: #Eosinphils 0.2 thou/uL (0.0-0.7); #Monocytes 0.6 thou/uL (0.11-0.59); #Neutrophils 4.6 thou/uL (1.40-6.50); %Basophils 0.6 % (0.0-1.0); %Eosinophils 2.6 % (0.0-10.0); %Lymphocytes 22.3 % (21.0-51.0); %Monocytes 8.8 % (0.0-10.0); %Neutrophils 65.4 % (42.0-75.0); Hemoglobin 10.6 g/dL (12.0-16.0); Mean Corpuscular HGB CONC 32.6 g/dL (32.0-36.0); Mean Corpuscular Hemoglobin 30.5 pg (27.0-31.0); Mean Corpuscular Volume 93.4 fl (78.0-98.0); Mean Platelet Volume 9.1 fL (7.4-10.4); Platelet Count 216 10x3/uL (130-400); RBC Distribution Width 13.2 % (11.5-14.5); Red Blood Cell (RBC) Count 3.48 mill/uL (4.20-5.40)
[2023-04-24 05:19] LABS: Anion Gap 11 mmol/L (10-20); BUN (Urea Nitrogen) 15 mg/dL (9.8-20.1); Calc. Creatinine Clearance 37 mL/min (70-130); Carbon Dioxide 25 mmol/L (23-31); Chloride 107 mmol/L (98-107); Estimated GFR 62; Glucose 106 mg/dL (83-110); Sodium 139 mmol/L (136-145)
[2023-04-24] MEDS ORDERED: Famotidine 20 MG TAB ONE (09:27)
[2023-04-24] MEDS: Famotidine 20 MG TAB PO SCH (09:30)
[2023-04-24] MEDS ORDERED: Carvedilol 25 MG TAB PO SCH (17:00)
[2023-04-24] MEDS: Carvedilol 25 MG TAB PO SCH (20:43)
[2023-04-24] MEDS: Donepezil HCl 10 MG TAB PO SCH (20:44)
[2023-04-24] MEDS: Atorvastatin Calcium 40 MG TAB PO SCH (20:44)
[2023-04-25] MEDS: Levothyroxine Sodium 100 MCG TAB PO SCH (05:50)
[2023-04-25 07:05] LABS: SARS-CoV-2 NAA Rapid Test Not Detected (NotDetected)
[2023-04-25] MEDS: Carvedilol 25 MG TAB PO SCH ×2 (10:05→18:04)
[2023-04-25] MEDS: Torsemide 10 MG TAB PO SCH (10:06)
[2023-04-25] MEDS: Famotidine 20 MG TAB PO SCH (10:06)
[2023-04-25] MEDS: DULoxetine 60 MG CAP PO SCH (10:07)
[2023-04-25] MEDS: Ezetimibe 10 MG TAB PO SCH (10:07)
[2023-04-25] MEDS: Atorvastatin Calcium 40 MG TAB PO SCH (21:37)
[2023-04-25] MEDS: Donepezil HCl 10 MG TAB PO SCH (21:38)
[2023-04-26] MEDS: Levothyroxine Sodium 100 MCG TAB PO SCH (05:33)
[2023-04-26] MEDS: Famotidine 20 MG TAB PO SCH (08:48)
[2023-04-26] MEDS: Ezetimibe 10 MG TAB PO SCH (08:48)
[2023-04-26] MEDS: Torsemide 10 MG TAB PO SCH (08:49)
[2023-04-26] MEDS: Carvedilol 25 MG TAB PO SCH ×2 (08:49→16:49)
[2023-04-26] MEDS: DULoxetine 60 MG CAP PO SCH (08:49)
[2023-04-26] MEDS: Donepezil HCl 10 MG TAB PO SCH (19:58)
[2023-04-26] MEDS: Atorvastatin Calcium 40 MG TAB PO SCH (19:58)
[2023-04-27] MEDS: Levothyroxine Sodium 100 MCG TAB PO SCH (05:44)
[2023-04-27 08:12] VITALS: BMI 19.4
[2023-04-27] MEDS: Carvedilol 25 MG TAB PO SCH ×2 (09:53→19:03)
[2023-04-27] MEDS: Ezetimibe 10 MG TAB PO SCH (09:53)
[2023-04-27] MEDS: Torsemide 10 MG TAB PO SCH (09:53)
[2023-04-27] MEDS: Famotidine 20 MG TAB PO SCH (09:54)
[2023-04-27] MEDS: DULoxetine 60 MG CAP PO SCH (09:54)
[2023-04-27] MEDS: Donepezil HCl 10 MG TAB PO SCH (21:14)
[2023-04-27] MEDS: Atorvastatin Calcium 40 MG TAB PO SCH (21:14)
[2023-04-28] MEDS: Levothyroxine Sodium 100 MCG TAB PO SCH (05:58)
[2023-04-28] MEDS: Famotidine 20 MG TAB PO SCH (10:13)
[2023-04-28] MEDS: DULoxetine 60 MG CAP PO SCH (10:13)
[2023-04-28] MEDS: Torsemide 10 MG TAB PO SCH (10:13)
[2023-04-28] MEDS: Carvedilol 25 MG TAB PO SCH (10:14)
[2023-04-28] MEDS: Ezetimibe 10 MG TAB PO SCH (10:14)
[2023-04-28 13:15] VITALS: BP 92/58; TEMP 97.9
== END 2023-04-28 13:51 | DRG 87 ==
LOC: ERS 14:42 → ERHOLD 17:47 → SJJU 04-24 19:06
PROVIDERS: ADMIT Surgery; ATTEND Surgery
PROC: 6A550Z2 Pheresis of Platelets, Single (ICD-10-PCS; principal; 2023-04-23)
PROC: 30283B1 Transfusion of Nonautologous 4-Factor Prothrombin Complex Concentrate into Vein, Percutaneous Approach (ICD-10-PCS; 2023-04-23)
DX: S06.6X0A Traumatic subarachnoid hemorrhage without loss of consciousness, initial encounter (principal); F03.90 Unspecified dementia, unspecified severity, without behavioral disturbance, psychotic disturbance, mood disturbance, and anxiety; E78.5 Hyperlipidemia, unspecified; J44.9 Chronic obstructive pulmonary disease, unspecified; F41.9 Anxiety disorder, unspecified; I25.10 Atherosclerotic heart disease of native coronary artery without angina pectoris; I48.91 Unspecified atrial fibrillation; Z20.822 Contact with and (suspected) exposure to COVID-19; E03.9 Hypothyroidism, unspecified; I77.6 Arteritis, unspecified; I71.40 Abdominal aortic aneurysm, without rupture, unspecified; I10 Essential (primary) hypertension; S00.03XA Contusion of scalp, initial encounter; W19.XXXA Unspecified fall, initial encounter; Y92.009 Unspecified place in unspecified non-institutional (private) residence as the place of occurrence of the external cause; I25.2 Old myocardial infarction; Z98.890 Other specified postprocedural states; Z87.891 Personal history of nicotine dependence; Z88.0 Allergy status to penicillin; Z86.73 Personal history of transient ischemic attack (TIA), and cerebral infarction without residual deficits
CPT/HCPCS: 36415; 36416; 36430; 70450; 71045; 72170; 74177; 80048; 80053; 80162; 83735; 85025; 85610; 85730; 86850; 86900; 86901; 87635; 90714; 90715; 93005; 96374; G0390; J2270; J3480; J7050; J7168; P9035; Q9967; U0002

== ENCOUNTER 2023-05-04 11:51 | Outpatient (CLI) | payer MEDICARE | END 2023-05-04 11:52 | disposition home or self-care (01) | LOC: CT 11:51 | PROVIDERS: ATTEND Neurological Surgery | DX: S06.6X9A Traumatic subarachnoid hemorrhage with loss of consciousness of unspecified duration, initial encounter (principal) | CPT/HCPCS: 70450 ==

== ENCOUNTER 2023-05-15 09:01 | Observation (INO) | payer MEDICARE ==
[2023-05-15 09:40] VITALS: BMI 20.1
[2023-05-15] MEDS ORDERED: Acetaminophen 325 MG TAB PO PRN (10:29)
[2023-05-15 11:20] LABS: Troponin I Less than 0.010 ng/mL (< 0.028)
[2023-05-15 15:53] VITALS: BP 107/55; TEMP 97.3
[2023-05-15] MEDS ORDERED: Carvedilol 25 MG TAB PO SCH (17:00)
[2023-05-15] MEDS ORDERED: Atorvastatin Calcium 20 MG TAB PO SCH (21:00)
[2023-05-15] MEDS ORDERED: Donepezil HCl 5 MG TAB PO SCH (21:00)
[2023-05-16] MEDS ORDERED: Levothyroxine Sodium 100 MCG TAB PO SCH (06:00)
[2023-05-16] MEDS ORDERED: Digoxin 0.125 MG TAB PO SCH (09:00)
[2023-05-16] MEDS ORDERED: Ezetimibe 10 MG TAB PO SCH (09:00)
== END 2023-05-15 19:30 | disposition home or self-care (01) ==
LOC: INTOOBSV 09:01 → 2NO 09:01
PROVIDERS: ADMIT Student in an Organized Health Care Education/Training Program; ATTEND Internal Medicine
DX: R22.0 Localized swelling, mass and lump, head (principal); I25.10 Atherosclerotic heart disease of native coronary artery without angina pectoris; I48.91 Unspecified atrial fibrillation; E03.9 Hypothyroidism, unspecified; A50.02 Early congenital syphilitic osteochondropathy; I71.40 Abdominal aortic aneurysm, without rupture, unspecified; Z88.0 Allergy status to penicillin; Z90.49 Acquired absence of other specified parts of digestive tract; Z95.5 Presence of coronary angioplasty implant and graft; Z95.0 Presence of cardiac pacemaker; Z87.891 Personal history of nicotine dependence; Z98.890 Other specified postprocedural states; Z79.890 Hormone replacement therapy; Z79.899 Other long term (current) drug therapy
CPT/HCPCS: 36415; 93005; 93010; G0378

== ENCOUNTER 2023-06-10 11:10 | Outpatient (CLI) | payer MEDICARE | END 2023-06-10 11:11 | disposition home or self-care (01) | LOC: RAD 11:10 | PROVIDERS: ATTEND Internal Medicine Critical Care Medicine | DX: R06.00 Dyspnea, unspecified (principal) | CPT/HCPCS: 71046 ==

== ENCOUNTER 2024-03-06 10:39 | Inpatient (IN) | payer MEDICARE ==
[2024-03-06 12:17] LABS: #Basophils 0.04 10x3/uL (0.0-0.2); %Basophils 0.4 % (0.0-1.0); %Lymphocytes 20.8 % (21.0-51.0); %Monocytes 10.1 % (0.0-10.0); %Neutrophils 66.3 % (42.0-75.0); Hematocrit 35.5 % (36.0-47.0); Hemoglobin 11.5 g/dL (12.0-16.0); Mean Corpuscular HGB CONC 32.4 g/dL (32.0-36.0); Mean Corpuscular Volume 95.7 fL (78.0-98.0); Mean Platelet Volume 9.6 fL (7.4-10.4); Platelet Count 142 10x3/uL (130-400); RBC Distribution Width 13.1 % (11.5-14.5); Red Blood Cell (RBC) Count 3.71 mill/uL (4.20-5.40)
[2024-03-06 12:23] LABS: Bacteria/HPF None Seen HPF (None Seen); Bilirubin Negative (Negative); Blood, Urine Negative (Negative); CAUTI Indications for Culture Alt mental st,lethar; Clarity Clear (Clear); Glucose, Urine (Dipstick) Normal (Negative); Ketone, Urine Negative (Negative); Leukocyte Negative Leu/uL (Negative); Nitrite Negative (Negative); Protein, Urine (Dipstick) 20 mg/dL (Neg-Trace); RBC/HPF 0-3 HPF (0-3); Specific Gravity, Urine 1.018 (1.002-1.036); Squamous Epithelial None Seen HPF (0-3); Urobilinogen Normal mg/dL (Less than 2); WBC/HPF 0-3 HPF (0-3); pH, Urine 5.5 (5.0-9.0)
[2024-03-06 12:26] LABS: Urine Culture Reflex No No
[2024-03-06 12:34] LABS: ALT (SGPT) 10 U/L (8-55); AST (SGOT) 24 U/L (5-34); Albumin 3.7 g/dL (3.4-4.8); Alkaline Phosphatase 92 U/L (40-110); Anion Gap 16 mmol/L (10-20); BUN (Urea Nitrogen) 19 mg/dL (9.8-20.1); Bilirubin, Total 0.6 mg/dL (0.2-1.2); Calc. Creatinine Clearance 0 mL/min (70-130); Calcium 9.8 mg/dL (7.8-10.44); Carbon Dioxide 24 mmol/L (23-31); Chloride 101 mmol/L (98-107); Estimated GFR 58; Globulin 4.7 g/dL (2.4-3.5); Glucose 89 mg/dL (83-110); Magnesium 2.1 mg/dL (1.6-2.6); Potassium 3.6 mmol/L (3.5-5.1); Protein, Total 8.4 g/dL (5.8-8.1); Sodium 137 mmol/L (136-145)
[2024-03-06 12:43] LABS: Critical Call Chem Troponin I NUR.LH12@1243; Troponin I 1.359 ng/mL (< 0.028)
[2024-03-06] MEDS ORDERED: Enoxaparin 60 MG (0.6 mL) SYRINGE ONE (15:00)
[2024-03-06] MEDS ORDERED: Enoxaparin 40 MG (0.4 mL) SYRINGE ONE (15:02)
[2024-03-06] MEDS ORDERED: Nitroglycerin 0.4 MG TAB (25 Tab Bottle) SL PRN (15:32)
[2024-03-06] MEDS ORDERED: Labetalol HCl 100 MG/20 ML VIAL SLOW IVP PRN (17:22)
[2024-03-06] MEDS ORDERED: hydrALAZINE 20 MG/ML VIAL SLOW IVP PRN (17:27)
[2024-03-06 17:46] VITALS: BMI 18.1
[2024-03-06 18:23] LABS: Troponin I 2.323 ng/mL (< 0.028)
[2024-03-06] MEDS: Sodium Chloride 0.9% 1,000 ML IV SCH (19:41)
[2024-03-06 22:48] LABS: Troponin I 2.389 ng/mL (< 0.028)
[2024-03-07] MEDS: Donepezil HCl 10 MG TAB PO SCH ×2 (00:33→20:04)
[2024-03-07] MEDS: Ziprasidone 20 MG CAP PO SCH ×2 (00:33→20:05)
[2024-03-07 05:35] LABS: #Basophils 0.05 10x3/uL (0.0-0.2); %Basophils 0.7 % (0.0-1.0); %Eosinophils 2.2 % (0.0-10.0); %Monocytes 10.8 % (0.0-10.0); %Neutrophils 63.9 % (42.0-75.0); Hematocrit 36.7 % (36.0-47.0); Hemoglobin 11.4 g/dL (12.0-16.0); Mean Corpuscular HGB CONC 31.1 g/dL (32.0-36.0); Mean Corpuscular Hemoglobin 30.9 pg (27.0-31.0); Mean Corpuscular Volume 99.5 fL (78.0-98.0); Mean Platelet Volume 9.6 fL (7.4-10.4); Platelet Count 126 10x3/uL (130-400); RBC Distribution Width 13.3 % (11.5-14.5); Red Blood Cell (RBC) Count 3.69 mill/uL (4.20-5.40)
[2024-03-07 06:12] LABS: Anion Gap 16 mmol/L (10-20); BUN (Urea Nitrogen) 14 mg/dL (9.8-20.1); Calc. Creatinine Clearance 42 mL/min (70-130); Calcium 9.1 mg/dL (7.8-10.44); Carbon Dioxide 19 mmol/L (23-31); Chloride 106 mmol/L (98-107); Estimated GFR 74; Glucose 83 mg/dL (83-110); Magnesium 1.9 mg/dL (1.6-2.6); Potassium 3.3 mmol/L (3.5-5.1); Sodium 138 mmol/L (136-145)
[2024-03-07] MEDS ORDERED: Electrolyte Replacement Protocol 1 EACH IVPB PRN (08:49)
[2024-03-07] MEDS ORDERED: Citalopram 20 MG TAB PO SCH (09:00)
[2024-03-07] MEDS ORDERED: Electrolyte Replacement Protocol FS PRN (09:45)
[2024-03-07 09:57] VITALS: BMI 18.1
[2024-03-07] MEDS: Metoprolol Tartrate 25 MG TAB PO SCH (10:23)
[2024-03-07] MEDS: Potassium Chloride 20 MEQ TAB PO SCH (10:24)
[2024-03-07] MEDS: DULoxetine 60 MG CAP PO SCH (10:24)
[2024-03-07] MEDS: Magnesium 2 GM/50 ML(in water) 2 GM in Premix 1 BAG IVPB SCH ×2 (11:13→15:56)
[2024-03-07] MEDS: Enoxaparin 60 MG (0.6 mL) SYRINGE SC SCH (11:14)
[2024-03-07] MEDS: Aspirin 81 mg Enteric Coated Tablet PO SCH (11:16)
[2024-03-07] MEDS: Atorvastatin Calcium 40 MG TAB PO SCH (20:04)
[2024-03-07] MEDS ORDERED: Enoxaparin 60 MG (0.6 mL) SYRINGE SC SCH (21:00)
[2024-03-08 04:50] LABS: #Basophils 0.04 10x3/uL (0.0-0.2); %Basophils 0.5 % (0.0-1.0); %Eosinophils 1.6 % (0.0-10.0); %Lymphocytes 21.8 % (21.0-51.0); %Neutrophils 64.7 % (42.0-75.0); Hematocrit 31.4 % (36.0-47.0); Hemoglobin 10.4 g/dL (12.0-16.0); Mean Corpuscular HGB CONC 33.1 g/dL (32.0-36.0); Mean Corpuscular Hemoglobin 30.5 pg (27.0-31.0); Mean Corpuscular Volume 92.1 fL (78.0-98.0); Mean Platelet Volume 10.2 fL (7.4-10.4); Platelet Count 130 10x3/uL (130-400); RBC Distribution Width 13.2 % (11.5-14.5); Red Blood Cell (RBC) Count 3.41 mill/uL (4.20-5.40)
[2024-03-08 05:06] LABS: Anion Gap 11 mmol/L (10-20); BUN (Urea Nitrogen) 9 mg/dL (9.8-20.1); Calc. Creatinine Clearance 50 mL/min (70-130); Calcium 8.4 mg/dL (7.8-10.44); Carbon Dioxide 22 mmol/L (23-31); Chloride 106 mmol/L (98-107); Estimated GFR 88; Glucose 85 mg/dL (83-110); Potassium 3.4 mmol/L (3.5-5.1); Sodium 136 mmol/L (136-145)
[2024-03-08 06:03] LABS: Critical Call Chem Troponin I NUR.VE @0601; Troponin I 1.938 ng/mL (< 0.028)
[2024-03-08] MEDS: Potassium Chloride 20 MEQ TAB PO SCH (09:04)
[2024-03-08 16:01] VITALS: BP 149/76; TEMP 98
== END 2024-03-08 17:45 | disposition home or self-care (01) | DRG 281 ==
LOC: ERS 10:39 → 2NO 14:21
PROVIDERS: ADMIT Internal Medicine; ATTEND Internal Medicine
DX: I21.4 Non-ST elevation (NSTEMI) myocardial infarction (principal); R47.01 Aphasia; Z68.1 Body mass index [BMI] 19.9 or less, adult; E78.5 Hyperlipidemia, unspecified; I11.0 Hypertensive heart disease with heart failure; J44.9 Chronic obstructive pulmonary disease, unspecified; I25.2 Old myocardial infarction; E03.9 Hypothyroidism, unspecified; F41.9 Anxiety disorder, unspecified; F32.A Depression, unspecified; I25.10 Atherosclerotic heart disease of native coronary artery without angina pectoris; F03.90 Unspecified dementia, unspecified severity, without behavioral disturbance, psychotic disturbance, mood disturbance, and anxiety; E87.6 Hypokalemia; E83.42 Hypomagnesemia; R63.6 Underweight; Z88.0 Allergy status to penicillin; Z98.890 Other specified postprocedural states; Z87.891 Personal history of nicotine dependence; Z79.899 Other long term (current) drug therapy; Z95.1 Presence of aortocoronary bypass graft; Z79.82 Long term (current) use of aspirin; Z51.5 Encounter for palliative care
CPT/HCPCS: 36415; 36416; 70450; 71045; 80048; 80053; 81001; 83605; 83735; 84484; 85025; 85379; 93005; 94760; J1650; J3475; J7050

== ENCOUNTER 2024-03-09 11:31 | Inpatient (IN) | payer MEDICARE ==
[2024-03-09] MEDS ORDERED: Iopamidol-370 76% 500 ML MDV (1 ML CHARGE) ONE (12:22)
[2024-03-09] MEDS ORDERED: Cefepime 2 GM VIAL ONE (13:09)
[2024-03-09] MEDS ORDERED: Sodium Chloride 0.9% 100 ML ONE (13:09)
[2024-03-09 13:40] LABS: ALT (SGPT) 13 U/L (8-55); AST (SGOT) 39 U/L (5-34); Alkaline Phosphatase 76 U/L (40-110); Anion Gap 15 mmol/L (10-20); BUN (Urea Nitrogen) 17 mg/dL (9.8-20.1); Bilirubin, Total 0.8 mg/dL (0.2-1.2); Calc. Creatinine Clearance 0 mL/min (70-130); Calcium 8.7 mg/dL (7.8-10.44); Carbon Dioxide 19 mmol/L (23-31); Chloride 104 mmol/L (98-107); Estimated GFR 67; Glucose 118 mg/dL (83-110); Potassium 3.6 mmol/L (3.5-5.1); Sodium 134 mmol/L (136-145)
[2024-03-09 13:44] LABS: SARS-CoV-2 E Target Negative; SARS-CoV-2 N2 Target Negative; SARS-CoV-2 NAA Rapid Test Not Detected (NotDetected); SARS-CoV-2 RdRP gene Negative
[2024-03-09] MEDS ORDERED: metroNIDAZOLE 500 MG (100 mL) BAG ONE (13:50)
[2024-03-09 13:58] LABS: Troponin I 4.692 ng/mL (< 0.028)
[2024-03-09 14:04] LABS: #Basophils 0.03 10x3/uL (0.0-0.2); %Basophils 0.3 % (0.0-1.0); %Eosinophils 0.3 % (0.0-10.0); %Lymphocytes 13.4 % (21.0-51.0); %Monocytes 7.1 % (0.0-10.0); %Neutrophils 78.5 % (42.0-75.0); Hematocrit 31.4 % (36.0-47.0); Mean Corpuscular HGB CONC 31.8 g/dL (32.0-36.0); Mean Corpuscular Hemoglobin 31.2 pg (27.0-31.0); Mean Corpuscular Volume 97.8 fL (78.0-98.0); Mean Platelet Volume 10.3 fL (7.4-10.4); Platelet Count 98 10x3/uL (130-400); RBC Distribution Width 13.3 % (11.5-14.5); Red Blood Cell (RBC) Count 3.21 mill/uL (4.20-5.40)
[2024-03-09] MEDS ORDERED: Aspirin 300 MG Suppository ONE (14:15)
[2024-03-09 16:40] LABS: Lactic Acid 3.2 mmol/L (0.5-2.2)
[2024-03-09] MEDS ORDERED: Acetaminophen 650 MG Suppository PR PRN (16:47)
[2024-03-09] MEDS ORDERED: Acetaminophen 325 MG TAB PO PRN (16:47)
[2024-03-09] MEDS ORDERED: Ondansetron PF 4 MG/2 ML Vial IVP PRN (16:47)
[2024-03-09] MEDS ORDERED: Ondansetron ODT 4 MG TAB PO PRN (16:47)
[2024-03-09] MEDS ORDERED: Bisacodyl 10 MG SUPP PR PRN (16:47)
[2024-03-09 17:54] VITALS: BMI 19.1
[2024-03-09] MEDS: D5 LR w/20 mEq KCL 1,000 ML IV SCH (18:20)
[2024-03-09] MEDS: Ipratropium/Albuterol 3 ML NEB NEB SCH (18:59)
[2024-03-09 19:52] LABS: Critical Call Chem Troponin I NUR.GAJ@1952; Troponin I 4.937 ng/mL (< 0.028)
[2024-03-09] MEDS: Atorvastatin Calcium 40 MG TAB PO SCH (22:37)
[2024-03-09 22:42] LABS: Critical Call Chem Troponin I RESULT DECREASING; Troponin I 3.573 ng/mL (< 0.028)
[2024-03-09] MEDS: Famotidine/PF 20 mg/2ml Vial SLOW IVP SCH (22:53)
[2024-03-09] MEDS: metroNIDAZOLE 500 MG in Premix 1 BAG IVPB SCH (22:53)
[2024-03-10] MEDS: Cefepime 2 GM in Sodium Chloride 0.9% 100 ML IVPB SCH (00:05)
[2024-03-10 05:02] LABS: #Basophils 0.05 10x3/uL (0.0-0.2); %Basophils 0.5 % (0.0-1.0); %Eosinophils 1.4 % (0.0-10.0); %Lymphocytes 12.3 % (21.0-51.0); %Monocytes 8.8 % (0.0-10.0); %Neutrophils 76.3 % (42.0-75.0); Hematocrit 30.5 % (36.0-47.0); Hemoglobin 10.2 g/dL (12.0-16.0); Mean Corpuscular HGB CONC 33.4 g/dL (32.0-36.0); Mean Corpuscular Hemoglobin 31.5 pg (27.0-31.0); Mean Corpuscular Volume 94.1 fL (78.0-98.0); Mean Platelet Volume 11.2 fL (7.4-10.4); Platelet Count 79 10x3/uL (130-400); RBC Distribution Width 13.3 % (11.5-14.5); Red Blood Cell (RBC) Count 3.24 mill/uL (4.20-5.40)
[2024-03-10 05:09] LABS: ALT (SGPT) 14 U/L (8-55); AST (SGOT) 42 U/L (5-34); Albumin 2.9 g/dL (3.4-4.8); Alkaline Phosphatase 67 U/L (40-110); Anion Gap 16 mmol/L (10-20); BUN (Urea Nitrogen) 15 mg/dL (9.8-20.1); Bilirubin, Total 0.8 mg/dL (0.2-1.2); Calc. Creatinine Clearance 40 mL/min (70-130); Calcium 8.5 mg/dL (7.8-10.44); Carbon Dioxide 16 mmol/L (23-31); Chloride 111 mmol/L (98-107); Estimated GFR 76; Globulin 3.9 g/dL (2.4-3.5); Glucose 115 mg/dL (83-110); Potassium 3.6 mmol/L (3.5-5.1); Protein, Total 6.8 g/dL (5.8-8.1); Sodium 139 mmol/L (136-145)
[2024-03-10 05:27] LABS: Platelet Adequacy Comment Platelets Decreased; Polychromasia SLIGHT = 2-3 cells HPF (0-2)
[2024-03-10] MEDS ORDERED: Aspirin 300 MG Suppository PR SCH (09:00)
[2024-03-10] MEDS: Aspirin 81 mg Enteric Coated Tablet PO SCH (09:47)
[2024-03-10] MEDS: Clopidogrel Bisulfate 75 MG TAB PO SCH (09:47)
[2024-03-10 14:21] VITALS: BMI 19.1
[2024-03-10] MEDS: hydrALAZINE 20 MG/ML VIAL SLOW IVP PRN (19:31)
[2024-03-10] MEDS: Metoprolol Tartrate 5 MG (5 mL) VIAL ONE (20:02)
[2024-03-10 20:22] LABS: #Basophils 0.05 10x3/uL (0.0-0.2); %Basophils 0.4 % (0.0-1.0); %Eosinophils 0.7 % (0.0-10.0); %Lymphocytes 14.5 % (21.0-51.0); %Monocytes 8.1 % (0.0-10.0); %Neutrophils 75.9 % (42.0-75.0); Hematocrit 33.8 % (36.0-47.0); Hemoglobin 11.4 g/dL (12.0-16.0); Mean Corpuscular HGB CONC 33.7 g/dL (32.0-36.0); Mean Corpuscular Hemoglobin 31.8 pg (27.0-31.0); Mean Corpuscular Volume 94.2 fL (78.0-98.0); Mean Platelet Volume 11.1 fL (7.4-10.4); Platelet Count 69 10x3/uL (130-400); RBC Distribution Width 13.4 % (11.5-14.5); Red Blood Cell (RBC) Count 3.59 mill/uL (4.20-5.40)
[2024-03-10 20:34] LABS: Anion Gap 16 mmol/L (10-20); BUN (Urea Nitrogen) 11 mg/dL (9.8-20.1); Calc. Creatinine Clearance 41 mL/min (70-130); Calcium 8.9 mg/dL (7.8-10.44); Carbon Dioxide 17 mmol/L (23-31); Chloride 110 mmol/L (98-107); Estimated GFR 79; Glucose 118 mg/dL (83-110); Potassium 3.3 mmol/L (3.5-5.1); Sodium 140 mmol/L (136-145)
[2024-03-10] MEDS: Potassium Chloride 20 MEQ in Premix 1 BAG IVPB SCH (21:29)
[2024-03-10] MEDS: dilTIAZem 25 MG/5 ML VIAL SLOW IVP SCH (23:12)
[2024-03-11] MEDS: Labetalol HCl 100 MG/20 ML VIAL SLOW IVP PRN (03:16)
[2024-03-11 05:11] LABS: Cardiac Risk 3.7 (Less than 4.5)
[2024-03-11] MEDS: Famotidine/PF 20 mg/2ml Vial SLOW IVP SCH (08:51)
[2024-03-11 10:51] LABS: #Basophils 0.04 10x3/uL (0.0-0.2); %Basophils 0.4 % (0.0-1.0); %Eosinophils 0.7 % (0.0-10.0); %Lymphocytes 9.8 % (21.0-51.0); %Monocytes 7.9 % (0.0-10.0); %Neutrophils 80.8 % (42.0-75.0); Anion Gap 15 mmol/L (10-20); BUN (Urea Nitrogen) 13 mg/dL (9.8-20.1); Calc. Creatinine Clearance 41 mL/min (70-130); Calcium 8.4 mg/dL (7.8-10.44); Carbon Dioxide 16 mmol/L (23-31); Chloride 109 mmol/L (98-107); Estimated GFR 79; Glucose 148 mg/dL (83-110); Hemoglobin 9.5 g/dL (12.0-16.0); Mean Corpuscular HGB CONC 32.8 g/dL (32.0-36.0); Mean Corpuscular Volume 94.8 fL (78.0-98.0); Mean Platelet Volume 11.2 fL (7.4-10.4); Platelet Count 57 10x3/uL (130-400); Potassium 3.5 mmol/L (3.5-5.1); RBC Distribution Width 13.6 % (11.5-14.5); Red Blood Cell (RBC) Count 3.06 mill/uL (4.20-5.40); Sodium 136 mmol/L (136-145)
[2024-03-12] MEDS: dilTIAZem 125 MG in Sodium Chloride 0.9% 100 ML IVPB SCH (01:42)
[2024-03-12 05:36] LABS: Anion Gap 13 mmol/L (10-20); BUN (Urea Nitrogen) 14 mg/dL (9.8-20.1); Calc. Creatinine Clearance 43 mL/min (70-130); Calcium 8.3 mg/dL (7.8-10.44); Carbon Dioxide 19 mmol/L (23-31); Chloride 110 mmol/L (98-107); Estimated GFR 82; Glucose 92 mg/dL (83-110); Potassium 3.2 mmol/L (3.5-5.1); Sodium 139 mmol/L (136-145)
[2024-03-12 06:41] LABS: #Basophils 0.06 10x3/uL (0.0-0.2); %Basophils 0.6 % (0.0-1.0); %Lymphocytes 12.3 % (21.0-51.0); %Monocytes 9.8 % (0.0-10.0); %Neutrophils 74.6 % (42.0-75.0); Hematocrit 28.9 % (36.0-47.0); Hemoglobin 9.5 g/dL (12.0-16.0); Mean Corpuscular HGB CONC 32.9 g/dL (32.0-36.0); Mean Corpuscular Hemoglobin 29.9 pg (27.0-31.0); Mean Corpuscular Volume 90.9 fL (78.0-98.0); Mean Platelet Volume 11.8 fL (7.4-10.4); Platelet Count 49 10x3/uL (130-400); RBC Distribution Width 13.8 % (11.5-14.5); Red Blood Cell (RBC) Count 3.18 mill/uL (4.20-5.40)
[2024-03-12] MEDS: Aspirin 300 MG Suppository PR SCH (10:27)
[2024-03-12] MEDS: Furosemide 40 MG (4 mL) VIAL SLOW IVP SCH (10:27)
[2024-03-12] MEDS: Lorazepam 2 MG/ML VIAL SLOW IVP SCH (11:43)
[2024-03-12] MEDS: Potassium Chloride 20 MEQ in Premix 1 BAG IVPB SCH (11:44)
[2024-03-13 07:00] LABS: #Basophils 0.06 10x3/uL (0.0-0.2); %Basophils 0.4 % (0.0-1.0); %Eosinophils 0.2 % (0.0-10.0); %Lymphocytes 12.5 % (21.0-51.0); %Monocytes 8.5 % (0.0-10.0); %Neutrophils 77.1 % (42.0-75.0); Hemoglobin 10.1 g/dL (12.0-16.0); Mean Corpuscular HGB CONC 32.6 g/dL (32.0-36.0); Mean Corpuscular Hemoglobin 30.7 pg (27.0-31.0); Mean Corpuscular Volume 94.2 fL (78.0-98.0); Platelet Count 24 10x3/uL (130-400); RBC Distribution Width 14.2 % (11.5-14.5); Red Blood Cell (RBC) Count 3.29 mill/uL (4.20-5.40)
[2024-03-13 07:59] LABS: Anion Gap 16 mmol/L (10-20); BUN (Urea Nitrogen) 25 mg/dL (9.8-20.1); Calc. Creatinine Clearance 30 mL/min (70-130); Calcium 8.8 mg/dL (7.8-10.44); Carbon Dioxide 16 mmol/L (23-31); Chloride 110 mmol/L (98-107); Estimated GFR 54; Glucose 147 mg/dL (83-110); Potassium 3.9 mmol/L (3.5-5.1); Sodium 138 mmol/L (136-145)
[2024-03-13] MEDS: Furosemide 40 MG (4 mL) VIAL SLOW IVP SCH (11:00)
[2024-03-13] MEDS: methylPREDNISolone Sod Succ/PF 125 MG/2 ML VIAL IVP SCH (11:00)
[2024-03-13] MEDS: Morphine 4 MG/ML VIAL ONE (11:01)
[2024-03-13] MEDS: Lorazepam 2 MG/ML VIAL ONE (11:02)
[2024-03-13] MEDS: Lorazepam 2 MG/ML VIAL SLOW IVP SCH ×2 (11:08→14:23)
[2024-03-13] MEDS: Morphine 2 MG/ML VIAL SLOW IVP SCH ×2 (11:09→11:18)
[2024-03-13] MEDS: Scopolamine 1 mg/72 hour Patch TD SCH (11:13)
[2024-03-14 07:39] LABS: Anion Gap 17 mmol/L (10-20); BUN (Urea Nitrogen) 38 mg/dL (9.8-20.1); Calc. Creatinine Clearance 25 mL/min (70-130); Calcium 8.6 mg/dL (7.8-10.44); Carbon Dioxide 15 mmol/L (23-31); Chloride 114 mmol/L (98-107); Estimated GFR 44; Glucose 132 mg/dL (83-110); Potassium 4.1 mmol/L (3.5-5.1); Sodium 142 mmol/L (136-145)
[2024-03-14] MEDS: methylPREDNISolone Sod Succ 40 MG VIAL IVP SCH (09:13)
[2024-03-14 12:04] LABS: Reflex for Review?? YES
[2024-03-14 12:33] LABS: Burr Cells SLIGHT = 2-5 cells HPF (0-1); Helmet Cells MODERATE= 6-15 cells HPF (0-1); Platelet Adequacy Comment Significant Decrease; Poikilocytosis SLIGHT = 6-15 cells HPF (0-5); Polychromasia SLIGHT = 2-3 cells HPF (0-2); Schistocytes SLIGHT = 2-5 cells HPF (0-1)
[2024-03-14 14:31] LABS: #Basophils 0.03 10x3/uL (0.0-0.2); #Eosinphils Less than 0.03 10x3/uL (0.0-0.7); %Basophils 0.1 % (0.0-1.0); %Lymphocytes 5.6 % (21.0-51.0); %Monocytes 5.5 % (0.0-10.0); %Neutrophils 87.6 % (42.0-75.0); Hematocrit 32.6 % (36.0-47.0); Hemoglobin 10.6 g/dL (12.0-16.0); Mean Corpuscular HGB CONC 32.5 g/dL (32.0-36.0); Mean Corpuscular Hemoglobin 31.5 pg (27.0-31.0); Mean Corpuscular Volume 96.7 fL (78.0-98.0); Platelet Count 24 10x3/uL (130-400); RBC Distribution Width 14.6 % (11.5-14.5); Red Blood Cell (RBC) Count 3.37 mill/uL (4.20-5.40)
[2024-03-15 04:10] LABS: Hematocrit 38.8 % (36.0-47.0); Hemoglobin 11.7 g/dL (12.0-16.0); Mean Corpuscular HGB CONC 30.2 g/dL (32.0-36.0); Mean Corpuscular Hemoglobin 31.3 pg (27.0-31.0); Mean Corpuscular Volume 103.7 fL (78.0-98.0); Platelet Count 17 10x3/uL (130-400); RBC Distribution Width 15.2 % (11.5-14.5); Red Blood Cell (RBC) Count 3.74 mill/uL (4.20-5.40)
[2024-03-15] MEDS: Cefepime 1 GM in Sodium Chloride 0.9% 100 ML IVPB SCH (04:25)
[2024-03-15 04:47] LABS: Band 1 % (5-11); Burr Cells SLIGHT = 2-5 cells HPF (0-1); Lymphocytes 3 % (21-51); Macrocytosis SLIGHT = 6-15 cells HPF (0-5); Monocytes 5 % (0-10); Neutrophil 91 % (42-75); Nucleated RBC (Manual Ct) 2 % (0); Platelet Adequacy Comment Significant Decrease; Polychromasia SLIGHT = 2-3 cells HPF (0-2); Schistocytes SLIGHT = 2-5 cells HPF (0-1); Smudge Cells 11.8 %
[2024-03-15 05:19] LABS: Anion Gap 19 mmol/L (10-20); BUN (Urea Nitrogen) 52 mg/dL (9.8-20.1); Calc. Creatinine Clearance 22 mL/min (70-130); Calcium 8.9 mg/dL (7.8-10.44); Carbon Dioxide 13 mmol/L (23-31); Chloride 116 mmol/L (98-107); Estimated GFR 37; Glucose 94 mg/dL (83-110); Potassium 4.8 mmol/L (3.5-5.1); Sodium 143 mmol/L (136-145)
[2024-03-15 08:14] VITALS: BP 109/75; TEMP 97.8
[2024-03-15] MEDS: LORazepam 2 MG/ML SYR.(CARPUJECT) IVP SCH ×2 (09:13→09:41)
[2024-03-15] MEDS: Morphine 4 MG/ML VIAL ONE (09:34)
[2024-03-15] MEDS: Morphine 4 MG/ML VIAL SLOW IVP SCH (09:36)
[2024-03-15] MEDS: Morphine 2 MG/ML VIAL SLOW IVP SCH (09:40)
[2024-03-15] MEDS: Glycopyrrolate 0.2 MG/ML 5 ML SYRINGE SLOW IVP SCH (10:28)
[2024-03-15] MEDS: Glycopyrrolate 0.4 MG/ 2 ML VIAL SLOW IVP SCH (11:07)
[2024-03-15] MEDS: GLYCOPYRROLATE/PF 0.2 MG/ML VIAL SLOW IVP SCH (11:07)
== END 2024-03-15 14:06 | disposition expired | DRG 64 ==
LOC: ERS 11:31 → ERHOLD 14:49 → 2SE 17:35
PROVIDERS: ADMIT Internal Medicine; ATTEND Internal Medicine
PROC: 4A00X4Z Measurement of Central Nervous Electrical Activity, External Approach (ICD-10-PCS; principal; 2024-03-10)
DX: I63.9 Cerebral infarction, unspecified (principal); A41.9 Sepsis, unspecified organism; J69.0 Pneumonitis due to inhalation of food and vomit; J96.01 Acute respiratory failure with hypoxia; I21.4 Non-ST elevation (NSTEMI) myocardial infarction; G81.91 Hemiplegia, unspecified affecting right dominant side; Z66 Do not resuscitate; Z51.5 Encounter for palliative care; I11.0 Hypertensive heart disease with heart failure; E78.5 Hyperlipidemia, unspecified; I50.9 Heart failure, unspecified; J44.9 Chronic obstructive pulmonary disease, unspecified; I25.2 Old myocardial infarction; E03.9 Hypothyroidism, unspecified; Z98.890 Other specified postprocedural states; Z90.49 Acquired absence of other specified parts of digestive tract; F41.9 Anxiety disorder, unspecified; F32.A Depression, unspecified; Z87.891 Personal history of nicotine dependence; Z88.0 Allergy status to penicillin; R29.715 NIHSS score 15; I25.10 Atherosclerotic heart disease of native coronary artery without angina pectoris; Z95.1 Presence of aortocoronary bypass graft; Z79.82 Long term (current) use of aspirin; Z79.899 Other long term (current) drug therapy; D64.9 Anemia, unspecified; D69.6 Thrombocytopenia, unspecified; F03.90 Unspecified dementia, unspecified severity, without behavioral disturbance, psychotic disturbance, mood disturbance, and anxiety; Z95.0 Presence of cardiac pacemaker; I48.0 Paroxysmal atrial fibrillation; E87.6 Hypokalemia; E87.70 Fluid overload, unspecified
CPT/HCPCS: 36415; 36416; 70450; 70496; 70498; 71045; 74230; 80048; 80053; 80061; 83605; 83735; 84443; 84484; 85025; 85060; 87040; 93005; 93010; 93306; 94640; 95816; 95819; 96365; 96366; 96367; J0360; J0692; J1940; J2060; J2270; J2272; J2920; J2930; J3480; J3490; J7620; Q9967; S0028; U0002